=== PATIENT | male | born 1945 | race Caucasian/White ===

== ENCOUNTER 2019-05-30 17:13 | Inpatient (IN) | payer MEDICARE, BC ==
[~2019-05-30 17:13] MED LIST: Iopamidol 370 76% 100 ML VIAL ONE
[2019-05-30 18:02] LABS: Actual Bicarbonate (HCO3a) 15.2 mEq/L (22-28); Analyzer IN Cardio ER; Base Excess (BEa) -7.6 mEq/L (-2.0 to +3.0); Carboxyhemoglobin (COHb) 0.6 gm% (0.0-3.0); Hemoglobin (Hb) 7.5 g/dL (14.0-18.0); O2 Tension (PaO2) 111.2 mmHg (> 70.0); Potassium - ABG Lab 4.79 mmol/L (3.70-5.30); pH, Arterial 7.46 (7.35-7.45)
[2019-05-30 18:06] LABS: CO2 Tension 21.9 mmHg (35.0-45.0)
[2019-05-30] MEDS ORDERED: Fentanyl 100 MCG/2 ML VIAL ONE (18:06)
[2019-05-30] MEDS ORDERED: Piperacillin/Tazobactam 4.5 GM VIAL ONE (18:06)
[2019-05-30 18:07] LABS: Hemoglobin 7.5 g/dL (14.0-18.0); Mean Corpuscular HGB CONC 33.6 g/dL (32.0-36.0); Mean Corpuscular Hemoglobin 32.6 pg (27.0-31.0); Mean Corpuscular Volume 97.3 fL (78.0-98.0); Platelet Count 45 thou/uL (130-400); White Blood Cell (WBC) Count 4.8 thou/uL (4.8-10.8)
[2019-05-30 18:07] LABS: ALV-art Gradient 574.425 (0-20); Puncture Site RRA
[2019-05-30] MEDS ORDERED: Vancomycin HCl 1.25 GM in Sodium Chloride 0.9% 250 ML 250 ML IVPB ONE (18:15)
[2019-05-30 18:20] LABS: Anisocytosis MODERATE=16-30 cells (100X) (0-5/hpf); Band 17 % (5-11); Eosinophils 1 % (0-10); Lymphocytes 37 % (21-51); MDiff Complete? YES; Monocytes 12 % (0-10); Neutrophil 29 % (42-75); Ovalocytes SLIGHT = 2-5 cells (100X) (0-1/hpf); Platelet Morphology Comment Appears Decreased; Poikilocytosis SLIGHT = 6-15 cells (100X) (0-5/hpf); Polychromasia SLIGHT = 2-3 cells (100X) (0-2/hpf); Reactive Lymphocytes 4 % (0-10); Schistocytes SLIGHT = 2-5 cells (100X) (0-1/hpf); Spherocytes SLIGHT = 1-5 cells (100X) (None Seen); Toxic Granulation SLIGHT
--- NOTE | 2019-05-30 18:22 | ULT ---
ULTRASOUND DOPPLER DUPLEX VENOUS LEFT LOWER EXTREMITY: DATE: 05/30/2019 HISTORY: Left lower extremity pain and edema in 74-year-old male TECHNIQUE: Grayscale, color-flow, and spectral analysis, of major veins of left lower extremity. FINDINGS: There is demonstration of blood flow with normal compressibility, of the left common femoral, profund a femoral, greater saphenous, femoral, popliteal, and posterior tibial, veins. IMPRESSION: Negative. No deep venous thrombosis of left lower extremity.
[2019-05-30 18:24] LABS: ALT (SGPT) 17 U/L (8-55); AST (SGOT) 25 U/L (5-34); Albumin 2.9 g/dL (3.4-4.8); Alkaline Phosphatase 83 U/L (40-110); Anion Gap 19 mmol/L (10-20); BUN (Urea Nitrogen) 21 mg/dL (8.4-25.7); Bilirubin, Total 1.9 mg/dL (0.2-1.2); Calc. Creatinine Clearance 0 mL/min (70-130); Calcium 8.4 mg/dL (7.8-10.44); Carbon Dioxide 19 mmol/L (23-31); Chloride 105 mmol/L (98-107); Estimated GFR-MDRD 70; Globulin 4.2 g/dL (2.4-3.5); Glucose 77 mg/dL (83-110); Potassium 5.3 mmol/L (3.5-5.1); Protein, Total 7.1 g/dL (5.8-8.1); Sodium 138 mmol/L (136-145)
--- NOTE | 2019-05-30 18:35 | RAD ---
PORTABLE CHEST: Date: 05/30/19 HISTORY: Dyspnea. COMPARISON: August 2012 portable chest. FINDINGS: Diffuse alveolar infiltrate is seen throughout the right lung, more prominent in the periphery. Hazy alveolar infiltrate in the left lower lung. Heart size upper normal with postop sternotomy change. IMPRESSION: Diffuse alveolar infiltrates throughout the right lung and evidence of hazy alveolar infiltrate in th e left lung base. POS: AGW
[2019-05-30 18:45] LABS: CKMB 1.3 ng/mL (0-6.6)
[2019-05-30 19:00] LABS: Bilirubin Negative (Negative); Blood, Urine Negative (Negative); Clarity Clear (Clear); Glucose, Urine (Dipstick) Normal (Negative); Leukocyte Negative Leu/uL (Negative); Nitrite Negative (Negative); Protein, Urine (Dipstick) 20 mg/dL (Neg-Trace); Urobilinogen Greater than 12 mg/dL (Less than 2)
[2019-05-30] MEDS ORDERED: Atropine Sulfate 1 mg/10 ml Syringe ONE (19:20)
[2019-05-30] MEDS ORDERED: Rocuronium Bromide 50 MG/5 ML VIAL ONE ×2 (19:21→19:24)
[2019-05-30] MEDS ORDERED: Rocuronium Bromide 10 MG/ML (10ML VIAL) ONE ×2 (19:22→19:23)
--- NOTE | 2019-05-30 20:14 | RAD ---
RADIOGRAPH CHEST 1 VIEW: DATE: 05/30/2019 TIME: 7:51 PM HISTORY: 74-year-old male in respiratory failure, status post intubation. COMPARISON: 05/30/2019 5:51 PM FINDINGS: Dense alveolar infiltrate throughout most of the right lung has become more dense. Right lateral cost ophrenic angle is now excluded from [id number]. Blunting of left lateral costophrenic angle stable. Interstitial or alveolar densities throughout the left mid and lower lung zones, stable versu s slightly worse. New endotracheal tube at mid thoracic trachea. New esophagogastric tube with distal tip in distal esophagus. This is a supine image which would be insensitive for pneumothorax de tection. Left apex is clear. IMPRESSION: 1) status post intubation with endotracheal tube. 2) esophagogastric tube placement into the distal esophagus. 3) somewhat severe alveolar infiltrates throughout right lung. 4) left lower lobe infiltrate 5) small left pleural effusion
--- NOTE | 2019-05-30 20:35 | CT ---
CT ANGIOGRAM THORAX WITH CONTRAST: (CTA pulmonary angiogram) DATE: 05/30/2019 HISTORY: 74-year-old male with dyspnea. History of lung cancer. COMPARISON: Attenuation correction CT for PET scan of 03/04/2017 TECHNIQUE: IV injection of iodinated contrast. Scan acquisition timing attempted to coincide with iodinated contrast bolus reaching maximal density in pulmonary arteries. 3-D MIP reconstructions. FINDINGS: New finding of severe alveolar infiltrates throughout the right upper lobe, with lateral predominance . New finding of moderate sized consolidation of right lower lobe with air bronchogram. New finding of small right pleural effusion. New finding of small left pleural effusion. New finding of left lower lobe consolidations. New finding of multifocal mild to moderate scattered alveolar infiltrates at left lower lobe, includi ng the lingula and posterior segment, less extensive than on the right. Endotracheal tube distal tip at mid thoracic trachea. Esophagogastric tube distal tip at distal esophagus. No IV contrast within what appears to be an expanded medial basilar segment of left lower lobe pulmon eccile artery. Uncertain whether this represents the previously demonstrated left lower lobe lung cancer invading shagufta men this artery or whether this represents PE. All the rest of the pulmonary arteries are opacified with IV contrast. No thoracic aortic aneurysm or dissection. Nonspecific multiple mildly enlarged mediastinal and hilar lymph nodes bilaterally. Coronary artery calcification severe throughout LAD. Less severe at RCA. No cardiomegaly. IMPRESSION: 1) severe right upper lobe alveolar infiltrates, and multifocal smaller less extensive left upper lob e alveolar infiltrates. This has the appearance of bilateral upper lobe pneumonia. However, the patient reportedly has no leukocytosis and no fever. Other etiology for the infiltrates should then b e considered, such as pulmonary hemorrhage and noninfectious causes of pneumonitis (unless there is neutropenia which would explain the lack of fever and leukocytosis). 2) bilateral small pleural effusions. 3) bilateral lower lobe consolidations adjacent to the pleural effusions. These could represent passi ve atelectasis or bilateral lower lobe pneumonia. 4) nonopacification of medial basilar segment of left lower lobe pulmonary artery. Uncertain whether this represents lung cancer direct tumor invasion of this artery, or isolated pulmonary thromboembolism. The appearance is atypical for pulmonary thromboembolism. 5) esophagogastric tube distal tip is at distal esophagus, just superior to the esophagogastric junct ion..
[2019-05-30] MEDS ORDERED: Morphine 2 MG/ML SYRINGE SLOW IVP PRN ×2 (20:53→22:46)
[2019-05-30] MEDS ORDERED: Fentanyl BOLUS 250 ML IVPB PRN ×2 (20:53→22:46)
[2019-05-30] MEDS ORDERED: DISCONTINUE PREVIOUS NARCOTIC PAIN MEDICATIONS AND BENZODIAZEPINES FS SCH ×2 (20:53→22:46)
[2019-05-30] MEDS ORDERED: Propofol BOLUS 1,000 MG/100 ML VIAL IV PRN (20:53)
[2019-05-30] MEDS ORDERED: Lorazepam 2 MG/ML VIAL SLOW IVP PRN (20:53)
[2019-05-30] MEDS ORDERED: fentaNYL Citrate/PF 2,000 MCG in Sodium Chloride 0.9% 60 ML IV SCH (20:53)
[2019-05-30 20:54] LABS: Lactic Acid 6.4 mmol/L (0.5-2.2)
[2019-05-30 20:55] LABS: Actual Bicarbonate (HCO3a) 16.9 mEq/L (22-28); Analyzer IN Cardio ER; Base Excess (BEa) -9.7 mEq/L (-2.0 to +3.0); CO2 Tension 40.2 mmHg (35.0-45.0); Calcium, Ionized 1.08 mmol/L (1.12-1.30); Carboxyhemoglobin (COHb) 0.5 gm% (0.0-3.0); Hemoglobin (Hb) 7.1 g/dL (14.0-18.0); O2 Tension (PaO2) 96.1 mmHg (> 70.0); Potassium - ABG Lab 4.88 mmol/L (3.70-5.30)
[2019-05-30 20:56] LABS: Peep/CPAP 7.5 cmH2O; Puncture Site RRA; pH, Arterial 7.24 (7.35-7.45)
--- NOTE | 2019-05-30 20:59 | CT ---
CT ABDOMEN WITH CONTRAST CT PELVIS WITH CONTRAST: DATE: 05/30/2019 HISTORY: 74-year-old male with abdominal pain, generalized status post surgical removal of mass from abdomen. COMPARISON: Attenuation correction noncontrast CT for PET scan of 03/04/2017. TECHNIQUE: IV injection of iodinated contrast media: administered. Oral contrast media:Not administered FINDINGS: At midline in the subcutaneous fat anterior to the upper anterior abdominal wall at the level of stom ach, there is a 2 cm focus of subcutaneous emphysema. Perhaps this represents the site of surgical resection mentioned in the history. Recommend clinical correlation. Ill-defined wedge-shaped region of low attenuation at mid pole parenchyma of left kidney posterolater ally. Much smaller such lesion questioned in contralateral right renal midpole. Uncertain etiology. Perhaps acute or subacute renal infarctions. No splenomegaly. Limited evaluation of liver because of streak artifact because upper extremities wer e not elevated. No gross hepatic abnormality. No hydronephrosis. 3.5 x 3 cm fusiform infrarenal abdominal aortic aneurysm. Sullivan catheter within empty urinary bladder. No colonic diverticulitis. No small bowel dilation. No splenomegaly. Unremarkable pancreas. No adrenal mass. No ascites or pneumoperitoneum. Left pleural effusion and bilateral lower lobe consolidations. Right middle lobe an d right upper lobe alveolar infiltrates. Suture line involving bowel loop in right upper quadrant, apparently ileocolic anastomosis. This is new since previous CT. IMPRESSION: 1) wedge-shaped low attenuation lesions in the bilateral kidneys, one on each side, left greater than right. Etiology uncertain, but possibilities include acute or subacute renal infarctions and pyelonephritis. 2) Small focus of subcutaneous emphysema in the subcutaneous fat ventral to the upper midline abdomin al wall. Recommend correlation with recent surgical history. 3) status post bowel anastomosis involving ascending colon 4) fusiform infrarenal abdominal aortic aneurysm.
[2019-05-30 21:35] LABS: Troponin I 0.123 ng/mL (< 0.028)
[2019-05-30] MEDS ORDERED: Ventilator Sedation Protocol 1 EACH FS ONE (22:43)
[2019-05-30] MEDS ORDERED: Acetaminophen 650 MG Suppository PR PRN (22:43)
[2019-05-30] MEDS ORDERED: CCU Electrolyte Replacement 1 EACH FS ONE (22:43)
[2019-05-30] MEDS ORDERED: Ondansetron ODT 4 MG TAB PO PRN (22:43)
[2019-05-30] MEDS ORDERED: Ondansetron PF 4 MG/2 ML Vial IVP PRN (22:43)
[2019-05-30] MEDS ORDERED: Norepinephrine 8 MG/0.9% NS 250 ML IVPB SCH (22:45)
[2019-05-30] MEDS ORDERED: Potassium Phosphate 12 MMOL in Sodium Chloride 0.9% 250 ML 250 ML IV PRN (22:47)
[2019-05-30] MEDS ORDERED: CCU ELECTROLYTE REPLACEMENT PROTOCOL FS PRN (22:47)
[2019-05-30] MEDS ORDERED: Potassium Phosphate 15 MMOL in Sodium Chloride 0.9% 250 ML 250 ML IV PRN (22:47)
[2019-05-30] MEDS ORDERED: Potassium Phosphate 9 MMOL in Sodium Chloride 0.9% 100 ML IVPB PRN (22:47)
[2019-05-30] MEDS ORDERED: Potassium Chloride 40 MEQ in Premix Bag 1 BAG IVPB PRN (22:47)
[2019-05-30] MEDS ORDERED: PHOS-NAK 1 PKT PACK PO PRN ×2 (22:47)
[2019-05-30] MEDS ORDERED: Potassium Chloride 20 MEQ TAB PO PRN (22:47)
[2019-05-30] MEDS ORDERED: Magnesium Oxide 400 MG TAB PO PRN ×2 (22:47)
[2019-05-30] MEDS ORDERED: Magnesium 2 GM/50 ML 2 GM in Premix Bag 1 BAG IVPB PRN (22:47)
[2019-05-30] MEDS ORDERED: Potassium Chloride 40 MEQ in Sodium Chloride 0.9% 250 ML 250 ML IVPB PRN (22:47)
--- NOTE | 2019-05-30 22:58 | CT ---
CT BRAIN NONCONTRAST: DATE: 05/30/2019 HISTORY: 74-year-old male with altered mental status: Unresponsive and generalized weakness. FINDINGS: There is no evidence of acute intra-axial or extra-axial hemorrhage. There is no midline shift or any other mass effect. There is no extra-axial fluid collection. There is no evidence of obstructive hydrocephalus. Calvarium is intact. Moderate to severe mucosal thickening of bilateral maxillary sinu ses surrounded by osseous mural thickening indicating a long-standing chronic process. IMPRESSION: 1. No acute intracranial findings. 2. Chronic bilateral maxillary sinusitis.
[2019-05-30] MEDS: Propofol 1,000 MG/100 ML VIAL IV PRN (23:37)
[2019-05-31] MEDS: Piperacillin/Tazobactam 4.5 GM in Sodium Chloride 0.9% 100 ML IVPB SCH ×5 (00:43→23:07)
[2019-05-31] MEDS: Sodium Chloride 0.9% 1,000 ML IV SCH ×5 (00:44→22:29)
--- NOTE | 2019-05-31 00:44 | HP ---
PRIMARY CARE PROVIDER: Previously seeing Dr. Nelson Kaplan, question of Dr. Thang Zuñiga currently. CHIEF COMPLAINT: Shortness of breath and general weakness. HISTORY OF PRESENT ILLNESS: This is a 74-year-old male who presents to [facility] Emergency Department in transfer by EMS personnel after the patient's girlfriend called EMS due to profound weakness and unable to get the patient off the floor. The history is obtained after discussions with the patient's granddaughter, girlfriend as well as emergency room attending and nursing personnel. The patient currently on mechanical ventilation and unable to provide any history. The patient was apparently admitted to [facility] in the last week for workup regarding anemia. The patient was noted anemic, undergoing evaluation and eventual colonoscopy showing a colon mass. The patient underwent subsequent colon resection with the mass being a malignancy. The patient was hospitalized for several days and the patient reports the patient was complaining of persistent productive cough. The patient was discharged home on oxygen supplementation and was using this continuously. Remote history of tobacco use, but the family reports none currently. The patient also with significant history of lung cancer, previously treated approximately 4 years prior to this evaluation. Family had noted the patient with increasing general weakness, needing assistance for short distance ambulation. The patient had denied any specific fever, abdominal pain, diarrhea, exposure history, however, was admitted to [facility] within the last 1 to 1-1/2 weeks. In the emergency room, the patient was noted with hypotension with initial blood pressure of 90/50. The patient received aggressive IV fluid hydration with improvement in systolic blood pressure to 144/80. The patient was noted with persistent dyspnea and respiratory failure. Initially placed on oxygen supplementation by nasal cannula, transitioning to BiPAP, noninvasive mechanical ventilation. However, the patient was failing this mechanism and underwent intubation and placed on mechanical ventilation. Metabolic workup in the emergency room revealed a lactic acidosis of 9.2 and evidence of sepsis with chest imaging showing infiltrate bilaterally in the upper lobes. The patient received IV vancomycin, Zosyn, and Levaquin in addition to IV fluid resuscitation per sepsis protocol. The patient was placed on a Rambo Hugger due to hypothermia and received 1 unit of packed red blood cells with initial hemoglobin of 7.5. PAST MEDICAL HISTORY: 1. [id number] hypoxic respiratory failure with chronic oxygen supplementation. 2. Lung carcinoma status post chemotherapy. 3. Question of atrial fibrillation. 4. Generalized weakness. 5. Normocytic anemia, multifactorial including chronic disease state. 6. Colon carcinoma status post resection. 7. Remote tobacco abuse. PAST SURGICAL HISTORY: 1. Status post femoral-popliteal bypass, 2005. 2. Status post colon resection due to colon carcinoma. 3. Status post abdominal aortic aneurysm repair, 2005. CURRENT MEDICATIONS: Unobtainable. The patient's family will present an accurate list in the next 24 hours. ALLERGIES: TO TETANUS TOXOID. FAMILY HISTORY: Positive for hypertension. SOCIAL HISTORY: The patient resides in the [facility]. Accompanied by his granddaughters and girlfriend in the emergency room. Remote tobacco use, none currently. No alcohol or illicit drug use. Ambulates with a rolling walker. REVIEW OF SYSTEMS: Unobtainable due to the patient's altered mental status and respiratory failure on mechanical ventilation. PHYSICAL EXAMINATION: VITAL SIGNS: On admission, blood pressure 107/63, pulse is 69, respiratory rate 32, temperature 97.8 degrees Fahrenheit, O2 saturation 90% on 4 L/minute by nasal cannula. GENERAL APPEARANCE: This is a 74-year-old male, ill appearing, cyanotic, dusky, and unresponsive on current mechanical ventilation. HEENT: Pupils are sluggish and minimally reactive to light and accommodation. Nares patent. OP is clear. ET tube and OG tube in place. NECK: Supple. No cervical adenopathy. No thyromegaly. No carotid bruits. No JVD noted. CHEST: Coarse breath sounds bilaterally with prolonged expiratory phase. CARDIOVASCULAR EXAM: S1, S2 with tachycardia. No murmur, rub, or gallop appreciated. ABDOMEN: Obese, soft, nondistended. Bowel sounds are positive in all 4 quadrants. No palpable mass. No rebound or guarding appreciated. EXTREMITIES: Warm and dry with poor turgor. Prolonged capillary refill greater than 3 seconds. Pulses are palpable distally at the dorsalis pedis, posterior tibial, and popliteal arteries bilaterally. Capillary refill less than 2 seconds. NEUROLOGIC: Somnolent and unresponsive on current mechanical ventilation. : A Sullivan catheter in place with dark gricel urine. PERTINENT LABORATORY AND X-RAY FINDINGS: Sodium 138, potassium 5.3, chloride 105, CO2 of 19, BUN 21, creatinine 1.04, estimated GFR of 70. Lactic acid level ranged between 6.4 to 9.2, total bilirubin 1.9, AST 25, ALT of 17, alkaline phosphatase 83. Troponin I ranged between 0.123 to 0.141. CBC showed a white blood cell count of 4.8, hemoglobin 7.5, hematocrit 22.3, platelet count 45 with 29% neutrophils and 17% bands. ABG dated 05/30/2019, showed a pH 7.24, pCO2 of 40.2, pO2 of 96.1, bicarb 16.9, O2 saturation 94% on 70% FiO2. Urinalysis dated 05/30/2019, positive for ketones. Left lower extremity venous Doppler study dated 05/30/2019, negative for DVT. CT of the abdomen and pelvis dated 05/30/2019, showed low-attenuation wedge-shaped lesion in the bilateral kidneys, left greater than right. Etiology uncertain. Status post bowel anastomosis of the ascending colon. Fusiform infrarenal abdominal aortic aneurysm. CT angiogram of the chest dated 05/30/2019 showed severe right upper lobe alveolar infiltrates and multifocal smaller left upper lobe infiltrates. Bilateral lower lobe consolidation with associated pleural effusions. CT of the brain without contrast dated 05/30/2019, showed chronic changes bilaterally without acute process. EKG dated 05/30/2019, by my interpretation shows sinus mechanism with heart rates in the 60s. Normal R-wave progression noted in the precordial leads. Normal axis. Premature atrial complexes noted. ASSESSMENT AND PLAN: 1. Severe sepsis with septic shock secondary to pneumonia. The patient will be admitted to the critical care unit. Status post intubation and placed on mechanical ventilation in the emergency room. Initiation of sepsis protocol in the emergency room with IV fluid resuscitation. Suspect multifactorial process including developing pneumonia. Continue serial lactic acid assessment. 2. Acute hypoxic hypercapnic respiratory failure. Suspect secondary to healthcare-associated bacterial pneumonia. Continue IV Levaquin 750 mg q.24 hours with additional vancomycin 1.5 g IV q.12 hours, and Zosyn 4.5 g IV q.6 hours. Blood and urine cultures are pending. Continue aggressive pulmonary supportive management. Consult Pulmonology Service in the a.m. 3. Acute toxic metabolic encephalopathy. Suspect multifactorial process including severe sepsis with septic shock. Minimize sedation exposure. Family at the bedside for reorientation as needed. 4. Symptomatic anemia, suspected. Transfuse 1 unit of packed red blood cells in the emergency room. Continue serial H and H monitoring and transfuse as clinically indicated. Check stool guaiac. Limit anticoagulation and NSAIDs. 5. Non-ST elevation myocardial infarction. Suspect secondary to demand ischemic state in the context of #1. Continue general supportive management. Serial troponin monitoring. Likely no intervention given the patient's severe sepsis and tenuous clinical presentation. 6. Colon carcinoma status post resection. Continue supportive management. Serial H and H monitoring. Attempt to obtain pathology results from [facility] in [place], [place]. 7. Prophylaxis. SCDs while in bed. Pepcid 20 mg IV b.i.d. Consider Palliative Care consult. 8. Code status is full. Surrogate medical decision maker is the patient's son. Job ID: [id number]
[2019-05-31 01:01] LABS: Troponin I 0.127 ng/mL (< 0.028)
[2019-05-31 02:18] LABS: Lactic Acid 2.2 mmol/L (0.5-2.2)
[2019-05-31] MEDS: Lorazepam 2 MG/ML VIAL SLOW IVP PRN ×3 (02:47→15:22)
[2019-05-31 04:22] LABS: Band 4 % (5-11); Eosinophils 1 % (0-10); Hemoglobin 7.6 g/dL (14.0-18.0); Hypochromia SLIGHT = 6-15 cells (100X) (0-5/hpf); Lymphocytes 43 % (21-51); MDiff Complete? YES; Mean Corpuscular Hemoglobin 32.7 pg (27.0-31.0); Mean Platelet Volume 10.7 fL (7.4-10.4); Monocytes 12 % (0-10); Neutrophil 40 % (42-75); Nucleated RBC 1 % (0); Platelet Count 32 thou/uL (130-400); Platelet Morphology Comment Appears Decreased; Red Blood Cell (RBC) Count 2.32 mill/uL (4.70-6.10); White Blood Cell (WBC) Count 2.4 thou/uL (4.8-10.8)
[2019-05-31 04:44] LABS: ALT (SGPT) 559 U/L (8-55); AST (SGOT) 1077 U/L (5-34); Albumin 2.5 g/dL (3.4-4.8); Alkaline Phosphatase 76 U/L (40-110); Anion Gap 14 mmol/L (10-20); BUN (Urea Nitrogen) 25 mg/dL (8.4-25.7); Bilirubin, Total 2.5 mg/dL (0.2-1.2); Calc. Creatinine Clearance 87 mL/min (70-130); Calcium 7.5 mg/dL (7.8-10.44); Carbon Dioxide 20 mmol/L (23-31); Chloride 109 mmol/L (98-107); Estimated GFR-MDRD 81; Globulin 3.6 g/dL (2.4-3.5); Glucose 98 mg/dL (83-110); Potassium 4.9 mmol/L (3.5-5.1); Protein, Total 6.1 g/dL (5.8-8.1); Sodium 138 mmol/L (136-145); Troponin I 0.151 ng/mL (< 0.028)
[2019-05-31 06:45] LABS: Actual Bicarbonate (HCO3a) 16.9 mEq/L (22-28); Base Excess (BEa) -6.2 mEq/L (-2.0 to +3.0); Carboxyhemoglobin (COHb) 1.7 gm% (0.0-3.0); Hemoglobin (Hb) 8.1 g/dL (14.0-18.0); Potassium - ABG Lab 4.43 mmol/L (3.70-5.30); pH, Arterial 7.45 (7.35-7.45)
[2019-05-31 06:58] LABS: CO2 Tension 25.2 mmHg (35.0-45.0)
[2019-05-31 06:59] LABS: Peep/CPAP 7.5 cmH2O; Puncture Site RRAD
[2019-05-31] MEDS: Famotidine/PF 20 mg/2ml Vial SLOW IVP SCH ×2 (07:30→22:27)
--- NOTE | 2019-05-31 07:49 | RAD ---
CHEST 1 VIEW: INDICATION: Respiratory failure. COMPARISON: Prior exam of 05/30/2019. IMPRESSION: ET tube, gastric catheter are again demonstrated. The gastric catheter has been advanced below the l eft hemidiaphragm beyond the field of view. Bilateral airspace opacities persist. No pneumothorax i s evident. Right costophrenic angle is excluded. POS: BH
[2019-05-31] MEDS: Vancomycin HCl 1.25 GM in Sodium Chloride 0.9% 250 ML 250 ML IVPB SCH ×2 (08:24→22:27)
[2019-05-31] MEDS: Propofol 1,000 MG/100 ML VIAL IV PRN ×2 (08:43→15:21)
[2019-05-31] MEDS ORDERED: Vancomycin HCl 1.5 GM in Sodium Chloride 0.9% 250 ML 250 ML IVPB SCH (09:00)
--- NOTE | 2019-05-31 09:19 | CON ---
DATE OF CONSULTATION: 05/31/2019 CONSULTING PHYSICIAN: Dr. Elie Carrasquillo. REASON FOR CONSULTATION: Critical care management following encompassed 70 minutes of critical care time. HISTORY OF PRESENT ILLNESS: The patient is a 74-year-old who presented to the hospital via EMS with profound weakness. He was intubated secondary to respiratory failure and placed on mechanical ventilation. He initially was tried on BiPAP that failed. Most of the history I have obtained is from reading Dr. Carrasquillo's history and physical and speaking with the patient's son. This patient was at [facility] 10 days ago and had a colon tumor removed that was bleeding causing significant anemia. About four days in that hospitalization, the patient was ready to go home. He developed severe hypoxemia. He eventually required oxygen therapy at home prior to hospital discharge. At home, he has been doing very poorly with increased weakness and shortness of breath. PAST MEDICAL HISTORY: 1. Acute on chronic respiratory failure, requiring chronic oxygen. 2. Left lower lobe lung cancer treated with radiation and chemotherapy by Dr. Myles at [facility]. 3. Paroxysmal atrial fibrillation. 4. Weakness. 5. Anemia. 6. Colon cancer. PAST SURGICAL HISTORY: 1. Coronary bypass grafting surgery. 2. Femoral-popliteal bypass. 3. Colon resection. 4. Abdominal aortic aneurysm repair. ALLERGIES: TETANUS TOXOID. FAMILY MEDICAL HISTORY: Remarkable for hypertension. SOCIAL HISTORY: Remote history of tobacco abuse. Currently does not smoke. Does not use illicit drugs. Ambulates with a rolling walker. Medications prior to admission not available for review at this time. We will request discharge medications from [facility]. REVIEW OF SYSTEMS: Not obtainable as the patient is currently on mechanical ventilation. PHYSICAL EXAMINATION: VITAL SIGNS: Heart rate 55, blood pressure 103/53, O2 saturation 97%, respiratory rate 18, temperature 97.5. This patient is on mechanical ventilation, receiving light sedation with propofol. He will awaken and move about the bed. HEENT: Pupils reactive. Sclerae anicteric. Oropharynx, ET tube in place. NECK: No adenopathy or JVD. LUNGS: Coarse rhonchi bilaterally with copious sputum production. CARDIOVASCULAR: S1, S2. Slightly bradycardic. No murmur. ABDOMEN: Midline surgical scar from previous colon resection appears to be healing well. Abdomen is not distended. Bowel sounds active. EXTREMITIES: No clubbing, cyanosis, or edema. He does have some blood tinged urine in his Sullivan catheter. LABORATORY DATA: White blood cell count 2.4, hemoglobin 7.6, hematocrit 22.3, and platelet count 32. PH 7.45, pCO2 of 25, PO2of 119 on SIMV rate 14, tidal volume 550, PEEP 7.5, pressure support 10, FiO2 of 50%. Sodium 138, potassium 4.9, chloride 109, CO2 of 20, BUN 25, creatinine 0.9, glucose 81. AST 1077, ALT 559. Troponin 0.015. Albumin 2.5. His chest x-ray shows bilateral infiltrates. CT scan shows bilateral infiltrative changes. There is a mass present in the left lower lobe which is small. He has small bilateral pleural effusions. ASSESSMENT: 1. Acute respiratory failure requiring mechanical ventilation. 2. Acute hypoxic respiratory failure. 3. Nosocomial/hospital-acquired pneumonia. 4. Status post colon cancer resection. 5. History of lung cancer. 6. History of underlying chronic obstructive pulmonary disease. 7. Anemia. 8. Thrombocytopenia. PLAN: The patient will be transfused platelets for the severe thrombocytopenia. He will be kept on mechanical ventilation. I agree with the current antibiotic coverage of Levaquin, Zosyn, and vancomycin. His laboratory data will be trended. He has transaminitis which is likely due to shock liver. Job ID: [id number]
--- NOTE | 2019-05-31 10:42 | PDOC.PALCO ---
Palliative Care Consult - Consult Details Requesting Physician: Dr Carrasquillo Reason for Consult: goals of care, advance directives assistance, family support Family Members Present: Patient son (He is an only child) - Pertinent HPI Chronic health history. Treated for lung cancer 3 years ago as per son. A few weeks ago patient had an increase in weakness, falls, and found to be anemic. Further work up revealed a mass in his colon. Underwent a subsequent colon resection with removal of malignant mass, son reports lymph node involvement. Discharged from [facility] 05/27 to home with O2 secondary to respiratory compromise. They were awaiting results from the pathology prior to following up with oncology. After discharge patient continued with weakness, fell and was unable to get up. His girlfriend called 911 and patient was transferred to [facility]. Found to be hypotensive, hypothermic, and with respiratory compromise eventually requiring mechanical ventilation to maintain airway. Admitted to CCU for Acute on chronic respiratory failure, Colon carcinoma, weakness, anemia. - Pertinent PMH History of lung failure, anemia, Colon carcinoma s/p resection, hypertension, s/ p pop fem bypass, s/p abdominal aortic aneyrysm repair - Social History Smoking Status: Former smoker Smoking: quit greater than 1 year Alcohol Use: none Drug Use History: none Living Situation: independent (Has a girlfriend who lives two doors down.) - Medications MAR Reviewed: Yes - Allergies Allergies/Adverse Reactions: Allergies Allergy/AdvReac Type Severity Reaction Status Date / Time amiodarone Allergy Verified 05/30/19 23:36 tetanus toxoid, adsorbed Allergy Verified 05/30/19 23:36 - Subjective mechanical ventilation with sedation. Unable to perform a ROS secondary to nonverbal state - Objective Vital Signs: Vital Signs - Most Recent Temp Pulse Resp BP Pulse Ox 99.1 F 56 L 20 102/51 L 98 05/31/19 10:05 05/31/19 10:28 05/31/19 10:27 05/31/19 10:05 05/31/19 10:27 Palliative Performance Scale: 20 - Physical Exam Constitutional: encephalitic, ill appearing Deviation from normal: mechanical ventilation HEENT: moist MMs Deviation from normal: mechanical ventilation, adventicious lung sounds bilaterally Cardiovascular: no significant murmur, RRR Gastrointestinal: hypoactive bowel sounds, incontinent Genitourinary: carmona catheter Musculoskeletal: no cyanosis, pulses present Deviation from normal: sedated Skin: cap refill <2 seconds, no rash Deviation from normal: healing surgical scar to abdomin Deviation from normal: mechanical, sedated - Problem List (1) Palliative care encounter Code(s): Z51.5 - ENCOUNTER FOR PALLIATIVE CARE Current Visit: Yes Status: Acute (2) Respiratory failure requiring intubation Code(s): J96.90 - RESPIRATORY FAILURE, UNSP, UNSP W HYPOXIA OR HYPERCAPNIA Current Visit: Yes Status: Acute (3) Colon carcinoma Code(s): C18.9 - MALIGNANT NEOPLASM OF COLON, UNSPECIFIED Current Visit: Yes Status: Acute (4) History of lung cancer Code(s): Z85.118 - PERSONAL HISTORY OF MALIGNANT NEOPLASM OF BRONCHUS AND LUNG Current Visit: Yes Status: Acute (5) Acute metabolic encephalopathy Code(s): G93.41 - METABOLIC ENCEPHALOPATHY Current Visit: Yes Status: Acute - Plan/Recommendations Plan: Visited with son. History as well as supportive therapeutic listening. Patient has one son, and two granddaughters and is known as "Papa". He has a girlfriend that resides two doors down who is also not in optimal health. Son report patient has continued to work and enjoys being outdoors. Son is patient decision maker. *Request for pathology from [facility] has been made in relation to colon resection. Consideration to Oncoclogy referral by son *Discussed goals of care and monitoring patient through weekend. *revisit resuscitation status again when patient becomes more alert or condition changes illiciting further conversation *Alla Negro senior paralegal also present for conversation. [75] minutes spent on this encounter with >50% of the time in counseling and coordination of care. Thank you for this very appropriate consult.
--- NOTE | 2019-05-31 14:35 | PDOC.HOSPP ---
- Subjective Encounter Date: 05/31/19 Encounter Time: 08:31 Subjective: 74 y/o male with lung cancer s/p chemo, recent diagnosis of colon cancer s/p resection and re anastomosis, chronic respiratory failure on home oxygen brought in by EMS after a fall at home and was unable to get uu. He is said to have worsening SOB and generalized weakness. Patient was hypotensive hence was treated with IVF resuscitation and subsequently developed worsening SOB that failed BIPAP and was subsequently intubated. Still intubated and sedated. - Objective Vital Signs & Weight: Vital Signs (12 hours) Temp Pulse Pulse Pulse Pulse Resp BP 05/31/19 14:23 64 19 05/31/19 12:00 98.4 F 25 H 05/31/19 11:15 98.4 F 58 L 19 05/31/19 11:05 56 L 58 L 97/53 L 05/31/19 10:28 56 L 05/31/19 10:27 56 L 20 05/31/19 10:05 99.1 F 58 L 21 H 05/31/19 10:00 22 H 05/31/19 09:50 99.1 F 55 L 20 05/31/19 08:00 23 H 05/31/19 07:00 97.5 F L 57 L 05/31/19 06:00 18 05/31/19 04:00 97.6 F 18 BP BP Pulse Ox Pulse Ox Pulse Ox 05/31/19 14:23 99 05/31/19 12:00 05/31/19 11:15 97/53 L 98 05/31/19 11:05 103/73 99 98 05/31/19 10:28 05/31/19 10:27 98 05/31/19 10:05 102/51 L 98 05/31/19 10:00 05/31/19 09:50 103/53 L 99 05/31/19 08:00 05/31/19 07:00 05/31/19 06:00 05/31/19 04:00 Weight Admit Weight 189 lb Weight 189 lb 9.561 oz Most Recent Monitor Data Heart Rate from ECG 61 NIBP 98/52 NIBP BP-Mean 67 Respiration from ECG 30 SpO2 98 I&O: 05/30/19 05/31/19 06/01/19 06:59 06:59 06:59 Intake Total 840.8 250 Output Total 350 465 Balance 490.8 -215 Result Diagrams: 05/31/19 03:31 05/31/19 03:31 Hospitalist ROS - Medication Medications: Active Medications Generic Name Dose Route Start Last Admin Trade Name Freq PRN Reason Stop Dose Admin Albuterol/Ipratropium 3 ml 05/31/19 10:30 05/31/19 14:23 Duoneb NEB 3 ml [id number] RADHA Administration Famotidine 20 mg 05/31/19 09:00 05/31/19 07:30 Pepcid SLOW IVP 20 mg Q12HR RADHA Administration Fentanyl Citrate 2,000 mcg/ 100 mls @ 0 mls/hr 05/30/19 20:53 05/31/19 10:43 Sodium Chloride IV 06/29/19 20:53 100 mls INF RADHA Administration Protocol Per Protocol Sodium Chloride 1,000 mls @ 0 mls/hr 05/30/19 22:45 05/31/19 14:01 Normal Saline 0.9% IV 1,000 mls .Q0M RADHA Administration As Directed Piperacillin Sod/Tazobactam 100 mls @ 200 mls/hr 05/30/19 23:59 05/31/19 12: 30 Sod 4.5 gm/ Sodium Chloride IVPB 100 mls Q6HR RADHA Administration Vancomycin HCl 1.25 gm/ Sodium 250 mls @ 166.667 mls/hr 05/31/19 08:00 08:24 Chloride IVPB 250 mls 0800,2000 RADHA Administration Sodium Chloride 1,000 mls @ 125 mls/hr 05/31/19 00:45 05/31/19 00:44 Normal Saline 0.9% IV 1,000 mls .Q8H RADHA Administration Lorazepam 2 mg 05/30/19 22:46 05/31/19 08:41 Ativan SLOW IVP 06/29/19 22:46 2 mg Q1H PRN Administration Breakthrough agitation Morphine Sulfate 2 mg 05/30/19 22:46 05/31/19 07:29 Morphine SLOW IVP 06/29/19 22:46 2 mg Q1H PRN Administration BREAKTHROUGH PAIN/Agitation Propofol 1,000 mg 05/30/19 20:53 05/31/19 08:43 Diprivan IV 06/29/19 20:53 1,000 mg INF PRN Administration TO ACHIEVE GOAL RASS Protocol Sodium Chloride 10 ml 05/31/19 09:00 05/31/19 08:25 Flush - Normal Saline IVF 10 ml Q12HR RADHA Administration - Exam General - other findings: sedated ENT - other findings: ET and NG tubes in place Heart: RRR Respiratory - other findings: fair air entry with ventilator transmitted sound Gastrointestinal: soft, non-distended Gastrointestinal - other findings: Sullivan catheter in place Extremities: 1+ LE edema Neurological - other findings: sedated Hosp A/P (1) Septic shock Code(s): A41.9 - SEPSIS, UNSPECIFIED ORGANISM; R65.21 - SEVERE SEPSIS WITH SEPTIC SHOCK Status: Acute (2) Acute on chronic respiratory failure Code(s): J96.20 - ACUTE AND CHR RESP FAILURE, UNSP W HYPOXIA OR HYPERCAPNIA Status: Acute (3) Multifocal pneumonia Code(s): J18.9 - PNEUMONIA, UNSPECIFIED ORGANISM Status: Acute (4) Ischemia and infarction of kidney Code(s): N28.0 - ISCHEMIA AND INFARCTION OF KIDNEY Status: Acute (5) Severe anemia Code(s): D64.9 - ANEMIA, UNSPECIFIED Status: Acute (6) Thrombocythemia Status: Acute (7) Hepatosplenomegaly Code(s): R16.2 - HEPATOMEGALY WITH SPLENOMEGALY, NOT ELSEWHERE CLASSIFIED Status: Acute (8) Colon carcinoma Code(s): C18.9 - MALIGNANT NEOPLASM OF COLON, UNSPECIFIED Status: Acute (9) History of lung cancer Code(s): Z85.118 - PERSONAL HISTORY OF MALIGNANT NEOPLASM OF BRONCHUS AND LUNG Status: Acute (10) Shock liver Code(s): K72.00 - ACUTE AND SUBACUTE HEPATIC FAILURE WITHOUT COMA Status: Acute (11) Pulmonary embolism Code(s): I26.99 - OTHER PULMONARY EMBOLISM WITHOUT ACUTE COR PULMONALE Status : Suspected - Plan Continue broad spectrum antibiotics. Vent management as per painter apprentice. No anticoagulation due to recent surgery and severe anemia and thrombocytopenia cardioembolization is a concern given bilateral wedge shaped kidney lesions. Will get Echo looking for cardiac thrombus. Continue other supportive care.
[2019-05-31] MEDS: Propofol BOLUS 1,000 MG/100 ML VIAL IV PRN ×2 (20:50→22:35)
[2019-06-01] MEDS: Propofol BOLUS 1,000 MG/100 ML VIAL IV PRN (02:00)
[2019-06-01] MEDS: Propofol 1,000 MG/100 ML VIAL IV PRN ×4 (02:00→18:17)
[2019-06-01] MEDS: Sodium Chloride 0.9% 1,000 ML IV SCH ×3 (02:20→23:04)
[2019-06-01] MEDS: Lorazepam 2 MG/ML VIAL SLOW IVP PRN ×5 (02:21→15:52)
[2019-06-01] MEDS: Piperacillin/Tazobactam 4.5 GM in Sodium Chloride 0.9% 100 ML IVPB SCH ×3 (05:57→17:38)
[2019-06-01 06:40] LABS: Band 2 % (5-11); Hemoglobin 6.8 g/dL (14.0-18.0); Lymphocytes 48 % (21-51); MDiff Complete? YES; Mean Corpuscular HGB CONC 33.9 g/dL (32.0-36.0); Mean Corpuscular Hemoglobin 32.4 pg (27.0-31.0); Mean Corpuscular Volume 95.7 fL (78.0-98.0); Metamyelocyte 2 % (0-0); Monocytes 8 % (0-10); Neutrophil 40 % (42-75); Platelet Count 31 thou/uL (130-400); Platelet Morphology Comment Appears Decreased; RBC Distribution Width 20.1 % (11.5-14.5); Red Blood Cell (RBC) Count 2.11 mill/uL (4.70-6.10); White Blood Cell (WBC) Count 2.4 thou/uL (4.8-10.8)
[2019-06-01 06:46] LABS: ALT (SGPT) 465 U/L (8-55); AST (SGOT) 729 U/L (5-34); Albumin 2.4 g/dL (3.4-4.8); Alkaline Phosphatase 87 U/L (40-110); Anion Gap 12 mmol/L (10-20); BUN (Urea Nitrogen) 20 mg/dL (8.4-25.7); Bilirubin, Total 1.7 mg/dL (0.2-1.2); Calc. Creatinine Clearance 88 mL/min (70-130); Calcium 7.5 mg/dL (7.8-10.44); Carbon Dioxide 21 mmol/L (23-31); Chloride 110 mmol/L (98-107); Estimated GFR-MDRD 82; Globulin 3.6 g/dL (2.4-3.5); Glucose 90 mg/dL (83-110); Sodium 139 mmol/L (136-145)
[2019-06-01 06:49] LABS: Actual Bicarbonate (HCO3a) 16.7 mEq/L (22-28); Base Excess (BEa) -6.5 mEq/L (-2.0 to +3.0); Calcium, Ionized 1.12 mmol/L (1.12-1.30); O2 Tension (PaO2) 69.6 mmHg (> 70.0); Potassium - ABG Lab 3.86 mmol/L (3.70-5.30); pH, Arterial 7.45 (7.35-7.45)
[2019-06-01 07:13] LABS: CO2 Tension 24.6 mmHg (35.0-45.0); Puncture Site RRAD
[2019-06-01 07:14] LABS: Peep/CPAP 7.5 cmH2O
[2019-06-01 07:46] LABS: Vancomycin, Trough 13.5 ug/mL
--- NOTE | 2019-06-01 08:03 | RAD ---
CHEST 1 VIEW: INDICATION: Pneumonia. COMPARISON: Prior dated 05/22/2019. IMPRESSION: ET tube, gastric catheter are again demonstrated. Bilateral airspace opacity is similar-appearing. Post CABG change and mild cardiomegaly is stable appearing. Small left pleural effusion persists. N o pneumothorax is evident. POS: BH
[2019-06-01] MEDS: Famotidine/PF 20 mg/2ml Vial SLOW IVP SCH ×2 (08:44→20:01)
[2019-06-01] MEDS: Vancomycin HCl 1.25 GM in Sodium Chloride 0.9% 250 ML 250 ML IVPB SCH ×2 (08:44→20:01)
--- NOTE | 2019-06-01 09:03 | PRG ---
DATE OF SERVICE: 06/01/2019 TIME SPENT: Thirty five minutes of critical care time. SUBJECTIVE: The patient remains intubated on mechanical ventilation. He will withdraw to pain, but does not open his eyes or follow commands. OBJECTIVE: VITAL SIGNS: His temperature is 99.8, pulse 76, blood pressure 89/49, O2 saturation 97%. He is currently receiving propofol and fentanyl for sedation. A 24-hour intake 3647, output 1445. HEENT: Remarkable for bitemporal wasting. NECK: No adenopathy or JVD. LUNGS: Coarse breath sounds bilaterally. CARDIOVASCULAR: S1, S2. Regular. ABDOMEN: Soft. Surgical scar appears to be healing well. EXTREMITIES: No clubbing, cyanosis, or edema. LABORATORY DATA: Sodium 139, potassium 4.0, chloride 110, CO2 of 21, BUN 20, creatinine 0.9, glucose 82, AST 729, ALT 465. PH 7.45, pCO2 of 24, PO2 of 69 on SIMV rate 12, tidal volume 550, PEEP 7.5, pressure support 10, FiO2 of 40%. White blood cell count 2.4, hemoglobin 6.8, hematocrit 20.2, and platelet count 31. Chest x-ray demonstrates improved bilateral infiltrates compared to yesterday. An echocardiogram demonstrated severe mitral regurgitation. EF of 50% to 55%. Moderately enlarged right ventricle cavity and mild aortic regurgitation. ASSESSMENT: 1. Acute respiratory failure requiring mechanical ventilation. 2. Bilateral pneumonia versus congestive heart failure from valvular heart disease. 3. Nosocomial/hospital-acquired pneumonia for previous hospitalization. 4. Status post colon cancer resection. 5. Transaminitis likely due to heart failure/hypotension. 6. History of lung cancer. 7. History of chronic obstructive pulmonary disease. 8. Anemia. 9. Thrombocytopenia. PLAN: 1. I will give him some blood today to increase his hemoglobin. 2. He is not weanable at this time based on his poor mental status. 3. He will continue antibiotics and I will make adjustments based on culture results. 4. I have adjusted his mechanical ventilation settings. Job ID: [id number]
[2019-06-01] MEDS ORDERED: EPINEPHrine 1 MG/ML AMP ONE (09:20)
[2019-06-01] MEDS ORDERED: FLU VACC TS2019-20(65YR UP)/PF 180 MCG/0.5 ML SYRINGE IM ONE (11:15)
--- NOTE | 2019-06-01 12:54 | PDOC.HOSPP ---
- Subjective Encounter Date: 06/01/19 Encounter Time: 10:53 Subjective: 74 y/o male with lung cancer s/p chemo, recent diagnosis of colon cancer s/p resection and re anastomosis, chronic respiratory failure on home oxygen, who is said to have worsening generalized weakness and SOB was brought in by EMS after a fall at home. Patient was hypotensive hence was treated with IVF resuscitation and subsequently developed worsening SOB that failed BIPAP and was subsequently intubated. Still intubated, sedated and on pressors. - Objective Vital Signs & Weight: Vital Signs (12 hours) Temp Pulse Pulse Resp BP BP Pulse Ox 06/01/19 11:08 70 06/01/19 11:07 72 22 H 96 06/01/19 10:00 26 H 06/01/19 09:50 99.1 F 108 H 94 H 99/67 06/01/19 08:00 32 H 06/01/19 07:19 76 06/01/19 07:12 83 37 H 97 06/01/19 07:00 99.2 F 06/01/19 06:00 27 H 06/01/19 04:00 99.8 F H 21 H 06/01/19 02:24 71 96/57 L 06/01/19 02:00 29 H Weight Admit Weight 189 lb Weight 195 lb 12.328 oz Most Recent Monitor Data Heart Rate from ECG 70 NIBP 109/61 NIBP BP-Mean 77 Respiration from ECG 22 SpO2 96 I&O: 05/31/19 06/01/19 06/02/19 06:59 06:59 06:59 Intake Total 840.8 3647 470 Output Total 350 1445 475 Balance 490.8 2202 -5 Result Diagrams: 06/01/19 06:12 06/01/19 06:12 Hospitalist ROS - Medication Medications: Active Medications Generic Name Dose Route Start Last Admin Trade Name Freq PRN Reason Stop Dose Admin Albuterol/Ipratropium 3 ml 05/31/19 10:30 06/01/19 11:07 Duoneb NEB 3 ml [id number] RADHA Administration Famotidine 20 mg 05/31/19 09:00 06/01/19 08:44 Pepcid SLOW IVP 20 mg Q12HR RADHA Administration Levofloxacin 750 mg/ Device 150 mls @ 100 mls/hr 05/31/19 18:00 05/31/19 18: 16 IVPB 150 mls Q24HR RADHA Administration Sodium Chloride 1,000 mls @ 0 mls/hr 05/30/19 22:45 05/31/19 14:01 Normal Saline 0.9% IV 1,000 mls .Q0M RADHA Administration As Directed Piperacillin Sod/Tazobactam 100 mls @ 200 mls/hr 05/30/19 23:59 06/01/19 12: 41 Sod 4.5 gm/ Sodium Chloride IVPB 100 mls Q6HR RADHA Administration Vancomycin HCl 1.25 gm/ Sodium 250 mls @ 166.667 mls/hr 05/31/19 08:00 08:44 Chloride IVPB 250 mls 0800,2000 RADHA Administration Sodium Chloride 1,000 mls @ 125 mls/hr 05/31/19 00:45 06/01/19 08:42 Normal Saline 0.9% IV 1,000 mls .Q8H RADHA Administration Lorazepam 2 mg 05/30/19 22:46 06/01/19 09:50 Ativan SLOW IVP 06/29/19 22:46 2 mg Q1H PRN Administration Breakthrough agitation Morphine Sulfate 2 mg 05/30/19 22:46 05/31/19 07:29 Morphine SLOW IVP 06/29/19 22:46 2 mg Q1H PRN Administration BREAKTHROUGH PAIN/Agitation Propofol 1,000 mg 05/30/19 20:53 06/01/19 12:41 Diprivan IV 06/29/19 20:53 1,000 mg INF PRN Administration TO ACHIEVE GOAL RASS Protocol Propofol 20 mg 05/30/19 22:46 06/01/19 02:00 Diprivan Bolus IV 06/29/19 22:46 20 mg Q5MIN PRN Administration BREAKTHROUGH AGITATION Sodium Chloride 10 ml 05/31/19 09:00 06/01/19 08:44 Flush - Normal Saline IVF Not Given Q12HR RADHA - Exam General - other findings: sedated Eye: anicteric sclera ENT: normocephalic atraumatic ENT - other findings: ET and OG tubes are in place Heart: RRR Respiratory: tachypneic Respiratory - other findings: ventilator transmitted breathsound noted Gastrointestinal: soft, non-distended, normal bowel sounds Extremities: no cyanosis, no edema Extremities - other findings: scattered petechaie and ecchymosis both forearms noted Neurological - other findings: sedated Hosp A/P (1) Septic shock Code(s): A41.9 - SEPSIS, UNSPECIFIED ORGANISM; R65.21 - SEVERE SEPSIS WITH SEPTIC SHOCK Status: Acute (2) Acute on chronic respiratory failure Code(s): J96.20 - ACUTE AND CHR RESP FAILURE, UNSP W HYPOXIA OR HYPERCAPNIA Status: Acute (3) Multifocal pneumonia Code(s): J18.9 - PNEUMONIA, UNSPECIFIED ORGANISM Status: Acute (4) Ischemia and infarction of kidney Code(s): N28.0 - ISCHEMIA AND INFARCTION OF KIDNEY Status: Acute (5) Severe anemia Code(s): D64.9 - ANEMIA, UNSPECIFIED Status: Acute (6) Thrombocythemia Status: Acute (7) Hepatosplenomegaly Code(s): R16.2 - HEPATOMEGALY WITH SPLENOMEGALY, NOT ELSEWHERE CLASSIFIED Status: Acute (8) Colon carcinoma Code(s): C18.9 - MALIGNANT NEOPLASM OF COLON, UNSPECIFIED Status: Acute (9) History of lung cancer Code(s): Z85.118 - PERSONAL HISTORY OF MALIGNANT NEOPLASM OF BRONCHUS AND LUNG Status: Acute (10) Shock liver Code(s): K72.00 - ACUTE AND SUBACUTE HEPATIC FAILURE WITHOUT COMA Status: Acute (11) Pulmonary embolism Code(s): I26.99 - OTHER PULMONARY EMBOLISM WITHOUT ACUTE COR PULMONALE Status : Suspected (12) Severe tricuspid regurgitation Code(s): I07.1 - RHEUMATIC TRICUSPID INSUFFICIENCY Status: Acute (13) Severe mitral regurgitation Code(s): I34.0 - NONRHEUMATIC MITRAL (VALVE) INSUFFICIENCY Status: Acute - Plan Continue broad spectrum antibiotics. Vent management as per nuclear weapons mechanical specialist. No anticoagulation due to recent surgery and severe anemia and thrombocytopenia cardioembolization is a concern given bilateral wedge shaped kidney lesions. TTE was negative for cardiac thrombus. Will consider MARTINA when more stable. Monitor telemetry for atrial fib Continue other supportive care.
--- NOTE | 2019-06-01 15:22 | CON ---
DATE OF CONSULTATION: 06/01/2019 REASON FOR CONSULTATION: Bradycardia. HISTORY OF PRESENT ILLNESS: Mr. Cobb is a 74-year-old white gentleman, who was admitted for what appeared to be a pneumonia. He was admitted on the after being in the [facility] for a few days. He was short of breath and has generalized weakness. He was diagnosed with severe sepsis and septic shock secondary to what was thought to be a pneumonia and acute hypoxic respiratory insufficiency. He was admitted, intubated, and has been on supportive care ever since with antibiotics and on the ventilator. He was suctioned earlier today and soon after the suction, he became very bradycardic and had a sinus pause. Since that happened, every time he gets moved, he gets bradycardic briefly and then he comes out of it, heart rate in the 70s otherwise. He is sedated, intubated, and cannot provide any history. PAST MEDICAL HISTORY: 1. Acute on chronic hypoxic respiratory failure with chronic O2 supplementation. 2. Lung carcinoma, status post chemotherapy. 3. History of atrial fibrillation in the past. 4. Generalized weakness. 5. Normocytic anemia. 6. Colon carcinoma, status post recent resection. 7. Remote tobacco use. 8. Peripheral vascular disease. SURGICAL HISTORY: 1. Femoral-popliteal bypass in 2005. 2. Colon resection. 3. Abdominal aortic aneurysm repair in 2005. OUTPATIENT MEDICATIONS: Unobtainable as the patient is sedated and intubated. None in our system. ALLERGIES: TETANUS TOXOID AND AMIODARONE APPARENTLY. FAMILY HISTORY: Hypertension per chart review. SOCIAL HISTORY: History of remote tobacco use. No alcohol or drug use. REVIEW OF SYSTEMS: Unobtainable as the patient remains sedated and intubated. PHYSICAL EXAMINATION: VITAL SIGNS: Temperature 99.0, respiratory rate 32, saturating 92% on 40% FiO2, heart rate in the mid 70s. The episode that he had on telemetry, heart rate went down to the 20s briefly and one time he had a long sinus pause about 6 seconds. GENERAL: Sedated and intubated. LUNGS: Have reduced breath sounds. CARDIOVASCULAR: S1 and S2. Grade 2/3 systolic right upper sternal border. ABDOMEN: Soft. Positive bowel sounds. EXTREMITIES: No edema. SKIN: Warm and dry. LABORATORY DATA: Laboratory work was reviewed. White count of 2.4; hemoglobin of 6.8, dropped from 7.6; hematocrit of 20; platelet count of 31. ABG was reviewed. Chemistries were reviewed. LFTs are elevated with total bilirubin of 1.7, AST of 700, ALT of 400. Troponin is in the indeterminate range. UA was unremarkable. Telemetry was reviewed. Echocardiogram was reviewed. This was done yesterday, showed an EF of 50% to 55%, enlarged right ventricle, severe mitral regurgitation and mild aortic regurgitation, severe TR with elevated pressures. ASSESSMENT: 1. Sinus bradycardia and sinus pauses. 2. History of atrial fibrillation. 3. Chronic obstructive pulmonary disease. 4. Pulmonary hypertension, likely related to chronic obstructive pulmonary disease. 5. Severe mitral regurgitation. 6. Hospital-acquired pneumonia. 7. Recent colon resection for colon cancer. 8. History of lung cancer. PLAN: 1. Most likely, episodes of bradycardia are related to vasovagal reaction from suctioning. At this time,we will continue to monitor. He is not a candidate at the moment for a permanent pacemaker. However, if he continues to be bradycardic, he may need an urgent or emergent temporary pacer, not at this time. 2. Continue to monitor for now. We will plan on stopping the fentanyl drip as fentanyl may cause bradycardia in critically ill patients. Thank you for letting us to participate in the care of your patient. We will follow. Job ID: [id number]
[2019-06-02] MEDS: Piperacillin/Tazobactam 4.5 GM in Sodium Chloride 0.9% 100 ML IVPB SCH ×4 (00:47→17:41)
[2019-06-02 04:50] LABS: Hemoglobin 8.4 g/dL (14.0-18.0); Mean Corpuscular HGB CONC 35.3 g/dL (32.0-36.0); Mean Corpuscular Hemoglobin 32.5 pg (27.0-31.0); Mean Corpuscular Volume 92.2 fL (78.0-98.0); Mean Platelet Volume 11.4 fL (7.4-10.4); Platelet Count 14 thou/uL (130-400); Red Blood Cell (RBC) Count 2.59 mill/uL (4.70-6.10); White Blood Cell (WBC) Count 2.8 thou/uL (4.8-10.8)
[2019-06-02 05:09] LABS: ALT (SGPT) 362 U/L (8-55); AST (SGOT) 344 U/L (5-34); Albumin 2.3 g/dL (3.4-4.8); Alkaline Phosphatase 93 U/L (40-110); Anion Gap 9 mmol/L (10-20); BUN (Urea Nitrogen) 23 mg/dL (8.4-25.7); Bilirubin, Total 2.7 mg/dL (0.2-1.2); Calc. Creatinine Clearance 87 mL/min (70-130); Calcium 7.3 mg/dL (7.8-10.44); Carbon Dioxide 22 mmol/L (23-31); Chloride 111 mmol/L (98-107); Estimated GFR-MDRD 78; Globulin 3.8 g/dL (2.4-3.5); Glucose 139 mg/dL (83-110); Potassium 3.6 mmol/L (3.5-5.1); Protein, Total 6.1 g/dL (5.8-8.1); Sodium 138 mmol/L (136-145)
[2019-06-02 05:14] VITALS: BMI 28.8
[2019-06-02 05:25] LABS: Band 14 % (5-11); Elliptocytes SLIGHT = 2-5 cells (100X) (0-1/hpf); Hypochromia SLIGHT = 6-15 cells (100X) (0-5/hpf); Lymphocytes 39 % (21-51); MDiff Complete? YES; Metamyelocyte 3 % (0-0); Monocytes 9 % (0-10); Neutrophil 35 % (42-75); Nucleated RBC 1 % (0); Platelet Morphology Comment Appears Decreased
[2019-06-02] MEDS: Propofol 1,000 MG/100 ML VIAL IV PRN ×2 (06:41→11:35)
[2019-06-02] MEDS: Sodium Chloride 0.9% 1,000 ML IV SCH (06:44)
[2019-06-02 06:56] LABS: Actual Bicarbonate (HCO3a) 15.9 mEq/L (22-28); Base Excess (BEa) -7.7 mEq/L (-2.0 to +3.0); Calcium, Ionized 1.12 mmol/L (1.12-1.30); Hemoglobin (Hb) 7.9 g/dL (14.0-18.0); O2 Tension (PaO2) 66.6 mmHg (> 70.0); Potassium - ABG Lab 3.62 mmol/L (3.70-5.30); pH, Arterial 7.41 (7.35-7.45)
[2019-06-02 07:08] LABS: CO2 Tension 25.7 mmHg (35.0-45.0)
[2019-06-02 07:09] LABS: ALV-art Gradient 329.075 (0-20); Puncture Site RRAD
[2019-06-02] MEDS: Vancomycin HCl 1.25 GM in Sodium Chloride 0.9% 250 ML 250 ML IVPB SCH (08:13)
--- NOTE | 2019-06-02 08:13 | RAD ---
CHEST 1 VIEW: INDICATION: Pneumonia. COMPARISON: Prior exam dated 06/01/2019. IMPRESSION: Bilateral pneumonia is stable. Cardiomegaly is stable. ET tube and gastric catheter are stable. Ve rtebroplasty change and midline sternotomy are stable. No pneumothorax is evident. POS: BH
[2019-06-02] MEDS: Famotidine/PF 20 mg/2ml Vial SLOW IVP SCH ×2 (08:14→20:08)
[2019-06-02] MEDS: Sodium Chloride 0.45% 1,000 ML IV SCH ×3 (09:54→21:03)
[2019-06-02] MEDS: Metoclopramide HCl 10 MG/2 ML VIAL IVP SCH ×3 (09:54→20:09)
--- NOTE | 2019-06-02 10:02 | PRG ---
DATE OF SERVICE: 06/02/2019 TIME SPENT: Thirty five minutes critical time. SUBJECTIVE: The patient remains intubated on mechanical ventilation. He is sedated on propofol. OBJECTIVE: VITAL SIGNS: Temperature 98.2, pulse 82, blood pressure 97/57, respiratory rate in the high 20s, low 30s. HEENT: He has a disheveled appearance. NECK: No adenopathy or JVD. LUNGS: Crackles bilaterally. CARDIAC: S1 and S2, regular. ABDOMEN: Soft and nontender. Surgical scar appears to be healing well. EXTREMITIES: No clubbing, cyanosis, or edema. LABORATORY DATA: Sodium 138, potassium 3.6, chloride 111, CO2 of 22, BUN 23, creatinine 0.9, glucose 139, AST 344, ALT 362, albumin 2.3. White blood cell count 2.8, hematocrit 23.9, and platelet count 14. PH 7.41, pCO2 of 25, and pO2 of 66 on SIMV rate 12, tidal volume 500, PEEP 5, pressure support 10, FiO2 60%. ASSESSMENT: 1. Acute respiratory failure, requiring mechanical ventilation. 2. Bilateral pneumonia on x-ray. 3. Episode of bradycardia. 4. Status post colon cancer resection. 5. Improved transaminitis, history of lung cancer. 6. History of chronic obstructive pulmonary disease. 7. Anemia. 8. Severe thrombocytopenia. PLAN: Based on his neuromuscular weakness, he is not weanable at this time. He is continuing antibiotic treatment for his pneumonia. His bradycardia has improved with discontinuation of the fentanyl. Cultures to this point have shown no growth, therefore, I will stop the vancomycin. His prognosis is extremely poor for functional recovery. Job ID: [id number]
--- NOTE | 2019-06-02 11:32 | PDOC.CPN ---
- Subjective Date: 06/02/19 Time: 11:30 Interval history: No new issues. Bradycardia improved. - Review of Systems ROS unobtainable: due to endotracheal tube - Objective Allergies/Adverse Reactions: Allergies Allergy/AdvReac Type Severity Reaction Status Date / Time amiodarone Allergy Verified 05/30/19 23:36 tetanus toxoid, adsorbed Allergy Verified 05/30/19 23:36 Visit Medications: Current Medications Acetaminophen (Tylenol) 650 mg UT Q4H PRN PRN Reason: Fever > 101 Albuterol/Ipratropium (Duoneb) 3 ml NEB [id number] [facility] Last Admin: 06/02/19 10:19 Dose: 3 ml Famotidine (Pepcid) 20 mg SLOW IVP Q12HR [facility] Last Admin: 06/02/19 08:14 Dose: Not Given Levofloxacin 750 mg/ Device 150 mls @ 100 mls/hr IVPB Q24HR [facility] Last Admin: 06/01/19 16:40 Dose: 150 mls Sodium Chloride (Normal Saline 0.9%) 1,000 mls @ 0 mls/hr IV .Q0M [facility] Last Admin: 05/31/19 14:01 Dose: 1,000 mls Piperacillin Sod/Tazobactam (Sod 4.5 gm/ Sodium Chloride) 100 mls @ 200 mls/hr IVPB Q6HR [facility] Last Admin: 06/02/19 05:37 Dose: 100 mls Potassium Chloride 40 meq/ (Sodium Chloride) 270 mls @ 135 mls/hr IVPB ASDIR PRN PRN Reason: FOR SERUM K+ 2.5 - 3.5 Potassium Chloride 40 meq/ (Device) 100 mls @ 50 mls/hr IVPB ASDIR PRN PRN Reason: FOR SERUM K+ 2.5 - 3.5 Magnesium Sulfate 1 gm/ Sodium (Chloride) 102 mls @ 102 mls/hr IV PRN PRN PRN Reason: MAG LEVEL 1.4 - 2.0 Magnesium Sulfate 2 gm/ Device 50 mls @ 50 mls/hr IVPB ASDIR PRN PRN Reason: MAGNESIUM < 1.4 Potassium Phosphate 9 mmol/ (Sodium Chloride) 103 mls @ 25.75 mls/hr IVPB ASDIR PRN PRN Reason: Phosphate 1.0-1.8 Potassium Phosphate 12 mmol/ (Sodium Chloride) 254 mls @ 63.5 mls/hr IV ASDIR PRN PRN Reason: Serum phosphate 0.5-0.9 Potassium Phosphate 15 mmol/ (Sodium Chloride) 255 mls @ 63.75 mls/hr IV ASDIR PRN PRN Reason: Serum Phos < 0.5 Sodium Chloride (1/2 Normal Saline) 1,000 mls @ 75 mls/hr IV .[id number] [facility] Last Admin: 06/02/19 09:54 Dose: Not Given Lorazepam (Ativan) 2 mg SLOW IVP Q1H PRN PRN Reason: Breakthrough agitation Stop: 06/29/19 22:46 Last Admin: 06/01/19 15:52 Dose: 2 mg Magnesium Oxide (Magnesium Oxide) 400 mg PO BIDPRN PRN PRN Reason: FOR SERUM MAG 1.4 - 2.0 Magnesium Oxide (Magnesium Oxide) 800 mg PO PRN PRN PRN Reason: FOR SERUM MAG < 1.4 Metoclopramide HCl (Reglan) 10 mg IVP Q6H [facility] Last Admin: 06/02/19 09:54 Dose: 10 mg Miscellaneous Medication (Phos-Nak) 1 pkt PO TIDPRN PRN PRN Reason: FOR PHOS LEVEL 1.0 - 1.8 Miscellaneous Medication (Phos-Nak) 2 pkt PO TIDPRN PRN PRN Reason: FOR PHOS LEVEL 0.5 - 1.0 Miscellaneous Medication (Pharmacy To Dose) 1 each IVPB PRN PRN PRN Reason: Pharmacy to dose Morphine Sulfate (Morphine) 2 mg SLOW IVP Q1H PRN PRN Reason: BREAKTHROUGH PAIN/Agitation Stop: 06/29/19 22:46 Last Admin: 05/31/19 07:29 Dose: 2 mg Discontinue Previous Narcotic Pain Medications And Benzodiazepines 1 each FS .ONE [facility] Stop: 06/29/19 22:46 Ccu Electrolyte (Replacement Protocol) 0 each FS PRN PRN PRN Reason: FOR ELECTROLYTE REPLACEMENT Ondansetron HCl (Zofran Odt) 4 mg PO Q6H PRN PRN Reason: Nausea/Vomiting Ondansetron HCl (Zofran) 4 mg IVP Q6H PRN PRN Reason: Nausea/Vomiting Potassium Chloride (K-Dur) 40 meq PO ASDIR PRN PRN Reason: FOR SERUM K+ 2.5 - 3.5 Potassium Chloride (Klor-Con) 40 meq PER TUBE ASDIR PRN PRN Reason: FOR SERUM K+ 2.5-3.5 Propofol (Diprivan) 1,000 mg IV INF PRN; Protocol PRN Reason: TO ACHIEVE GOAL RASS Stop: 06/29/19 20:53 Last Admin: 06/02/19 06:41 Dose: 1,000 mg Propofol (Diprivan Bolus) 20 mg IV Q5MIN PRN PRN Reason: BREAKTHROUGH AGITATION Stop: 06/29/19 22:46 Last Admin: 06/01/19 02:00 Dose: 20 mg Sodium Chloride (Flush - Normal Saline) 10 ml IVF Q12HR RADHA Last Admin: 06/02/19 08:14 Dose: 10 ml Sodium Chloride (Flush - Normal Saline) 10 ml IVF PRN PRN PRN Reason: Saline Flush Vital Signs & Weight: Vital Signs Temp Pulse Resp Pulse Ox 06/02/19 10:20 83 06/02/19 10:19 83 32 H 92 L 06/02/19 10:00 32 H 06/02/19 08:00 32 H 97 06/02/19 07:10 80 06/02/19 07:07 81 31 H 95 06/02/19 07:00 98.5 F 06/02/19 06:00 31 H 06/02/19 04:00 98.2 F 32 H 06/02/19 03:13 80 06/02/19 02:00 31 H 06/02/19 00:00 99.2 F 32 H Admit Weight 189 lb Weight 201 lb 4.513 oz - Physical Exam General: other (Sedated, intubated.) HEENT: normocephaly Neck: supple neck, midline trachea Cardiac: regular rate and rhythm Lungs: decreased breath sounds Neuro: no lateralizing findings Abdomen: active bowel sounds, soft, non-tender Extremities: no edema Skin: clear Musculoskeletal: no fluid collection - Labs Result Diagrams: 06/02/19 04:19 06/02/19 04:19 Troponin/CKMB CK-MB (CK-2) 1.3 ng/mL (0-6.6) 05/30/19 17:46 Troponin I 0.151 ng/mL (< 0.028) H 05/31/19 03:31 - Telemetry Sinus rhythms and dysrhythmias: sinus rhythm - Assessment/Plan Assessment/Plan: 1. Sinus bradycardia, improved. 2. Hx of Afib 3. COPD 4. Pulmonary HTN 5. Severe MR 6. Pneumonia 7. Recent colon resection due to Colon Ca. 8. Hx of lung Ca PLAN: - May have been fentanyl drip versus vagal episodes form suctioning. These episodes have not recurred since yesterday. - Continue to stay off Fentanyl.
[2019-06-02] MEDS ORDERED: Albumin 25% 25 GM/100 ML BOT IVPB SCH ×2 (12:15→15:28)
--- NOTE | 2019-06-02 13:52 | PDOC.HOSPP ---
- Subjective Encounter Date: 06/02/19 Encounter Time: 11:49 Subjective: 74 y/o male with lung cancer s/p chemo, recent diagnosis of colon cancer s/p resection and re anastomosis, chronic respiratory failure on home oxygen, who is said to have worsening generalized weakness and SOB was brought in by EMS after a fall at home. Patient was hypotensive hence was treated with IVF resuscitation and subsequently developed worsening SOB that failed BIPAP and was subsequently intubated. Still intubated and sedated. Off pressors. BP and urine output dropped with decrease of IVF rate. Had bradycardia yesterday after suction and with movement. Improved with discontinuation of fentanyl. - Objective Vital Signs & Weight: Vital Signs (12 hours) Temp Pulse Resp Pulse Ox 06/02/19 12:00 98.0 F 30 H 06/02/19 10:20 83 06/02/19 10:19 83 32 H 92 L 06/02/19 10:00 32 H 06/02/19 08:00 32 H 97 06/02/19 07:10 80 06/02/19 07:07 81 31 H 95 06/02/19 07:00 98.5 F 06/02/19 06:00 31 H 06/02/19 04:00 98.2 F 32 H 06/02/19 03:13 80 06/02/19 02:00 31 H Weight Admit Weight 189 lb Weight 201 lb 4.513 oz Most Recent Monitor Data Heart Rate from ECG 82 NIBP 95/58 NIBP BP-Mean 70 Respiration from ECG 30 SpO2 92 I&O: 06/01/19 06/02/19 06/03/19 06:59 06:59 06:59 Intake Total 3647 5995.5 250 Output Total 1445 1195 175 Balance 2202 4800.5 75 Result Diagrams: 06/02/19 04:19 06/02/19 04:19 Hospitalist ROS - Medication Medications: Active Medications Generic Name Dose Route Start Last Admin Trade Name Freq PRN Reason Stop Dose Admin Albumin Human 25 gm 06/02/19 12:15 06/02/19 12:30 Albumin 25% IVPB 06/03/19 14:15 25 gm NOW RADHA Administration Albuterol/Ipratropium 3 ml 05/31/19 10:30 06/02/19 10:19 Duoneb NEB 3 ml [id number] RADHA Administration Famotidine 20 mg 11/29/19 09:00 06/02/19 08:14 Pepcid SLOW IVP Not Given Q12HR RADHA Levofloxacin 750 mg/ Device 150 mls @ 100 mls/hr 05/31/19 18:00 06/01/19 16: 40 IVPB 150 mls Q24HR RADHA Administration Sodium Chloride 1,000 mls @ 0 mls/hr 05/30/19 22:45 05/31/19 14:01 Normal Saline 0.9% IV 1,000 mls .Q0M RADHA Administration As Directed Piperacillin Sod/Tazobactam 100 mls @ 200 mls/hr 05/30/19 23:59 06/02/19 11: 35 Sod 4.5 gm/ Sodium Chloride IVPB 100 mls Q6HR RADHA Administration Sodium Chloride 1,000 mls @ 75 mls/hr 06/02/19 09:30 06/02/19 09:54 1/2 Normal Saline IV Not Given .[id number] RADHA Lorazepam 2 mg 05/30/19 22:46 06/01/19 15:52 Ativan SLOW IVP 06/29/19 22:46 2 mg Q1H PRN Administration Breakthrough agitation Metoclopramide HCl 10 mg 06/02/19 10:00 06/02/19 09:54 Reglan IVP 10 mg Q6H RADHA Administration Morphine Sulfate 2 mg 05/30/19 22:46 05/31/19 07:29 Morphine SLOW IVP 06/29/19 22:46 2 mg Q1H PRN Administration BREAKTHROUGH PAIN/Agitation Propofol 1,000 mg 05/30/19 20:53 06/02/19 11:35 Diprivan IV 06/29/19 20:53 1,000 mg INF PRN Administration TO ACHIEVE GOAL RASS Protocol Propofol 20 mg 05/30/19 22:46 06/01/19 02:00 Diprivan Bolus IV 06/29/19 22:46 20 mg Q5MIN PRN Administration BREAKTHROUGH AGITATION Sodium Chloride 10 ml 05/31/19 09:00 06/02/19 08:14 Flush - Normal Saline IVF 10 ml Q12HR RADHA Administration - Exam General - other findings: sedated ENT: normocephalic atraumatic ENT - other findings: ET and OG tubes in place. Heart: RRR Respiratory: rhonchi, tachypneic Respiratory - other findings: fair air entry bilaterally Gastrointestinal: soft, non-distended, normal bowel sounds Extremities - other findings: mild bilateral upper limb edema. trace leg edema Neurological - other findings: sedated Hosp A/P (1) Septic shock Code(s): A41.9 - SEPSIS, UNSPECIFIED ORGANISM; R65.21 - SEVERE SEPSIS WITH SEPTIC SHOCK Status: Acute (2) Acute on chronic respiratory failure Code(s): J96.20 - ACUTE AND CHR RESP FAILURE, UNSP W HYPOXIA OR HYPERCAPNIA Status: Acute (3) Multifocal pneumonia Code(s): J18.9 - PNEUMONIA, UNSPECIFIED ORGANISM Status: Acute (4) Ischemia and infarction of kidney Code(s): N28.0 - ISCHEMIA AND INFARCTION OF KIDNEY Status: Acute (5) Severe anemia Code(s): D64.9 - ANEMIA, UNSPECIFIED Status: Acute (6) Thrombocythemia Status: Acute (7) Hepatosplenomegaly Code(s): R16.2 - HEPATOMEGALY WITH SPLENOMEGALY, NOT ELSEWHERE CLASSIFIED Status: Acute (8) Colon carcinoma Code(s): C18.9 - MALIGNANT NEOPLASM OF COLON, UNSPECIFIED Status: Acute (9) History of lung cancer Code(s): Z85.118 - PERSONAL HISTORY OF MALIGNANT NEOPLASM OF BRONCHUS AND LUNG Status: Acute (10) Shock liver Code(s): K72.00 - ACUTE AND SUBACUTE HEPATIC FAILURE WITHOUT COMA Status: Acute (11) Pulmonary embolism Code(s): I26.99 - OTHER PULMONARY EMBOLISM WITHOUT ACUTE COR PULMONALE Status : Suspected (12) Severe tricuspid regurgitation Code(s): I07.1 - RHEUMATIC TRICUSPID INSUFFICIENCY Status: Acute (13) Severe mitral regurgitation Code(s): I34.0 - NONRHEUMATIC MITRAL (VALVE) INSUFFICIENCY Status: Acute (14) Bradycardia Code(s): R00.1 - BRADYCARDIA, UNSPECIFIED Status: Acute (15) Pancytopenia Code(s): D61.818 - OTHER PANCYTOPENIA Status: Acute - Plan Give albumin bolus to see if bp and urine output improves. Continue broad spectrum antibiotics. Vent management as per hot baller. cardioembolization is a concern given bilateral wedge shaped kidney lesions. TTE was negative for cardiac thrombus. Will consider MARTINA when more stable. Monitor telemetry for atrial fib Continue other supportive care.
[2019-06-02 23:49] VITALS: BP 97/49
[2019-06-03] MEDS ORDERED: DOPamine 400 MG/D5W 250 ML 250 ML ONE (00:07)
[2019-06-03] MEDS ORDERED: DOPamine 400 MG/D5W 250 ML 250 ML IVPB SCH (00:15)
[2019-06-03 00:34] LABS: Actual Bicarbonate (HCO3a) 11.9 mEq/L (22-28); Calcium, Ionized 1.12 mmol/L (1.12-1.30); Carboxyhemoglobin (COHb) 0.8 gm% (0.0-3.0); Hemoglobin (Hb) 9.2 g/dL (14.0-18.0); Potassium - ABG Lab 4.98 mmol/L (3.70-5.30)
[2019-06-03] MEDS ORDERED: Sodium Bicarb 50 MEQ/50 ML VIAL ONE ×2 (00:43→07:46)
[2019-06-03] MEDS ORDERED: Sodium Bicarb 50 MEQ/50 ML VIAL IVP SCH ×2 (00:45→08:00)
[2019-06-03] MEDS ORDERED: Sodium Bicarbonate 140 MEQ in Dextrose 5% in Water 1,000 ML IV SCH (00:45)
[2019-06-03] MEDS ORDERED: Norepinephrine 8 MG/0.9% NS 250 ML ONE (00:45)
[2019-06-03] MEDS ORDERED: Norepinephrine 8 MG in Dextrose 5% in Water 242 ML IVPB PRN (00:46)
[2019-06-03 00:48] LABS: Mean Corpuscular HGB CONC 32.8 g/dL (32.0-36.0); Mean Corpuscular Hemoglobin 31.7 pg (27.0-31.0); Mean Corpuscular Volume 96.8 fL (78.0-98.0); Mean Platelet Volume 15.4 fL (7.4-10.4); Platelet Count 11 thou/uL (130-400); RBC Distribution Width 19.5 % (11.5-14.5); Red Blood Cell (RBC) Count 2.82 mill/uL (4.70-6.10); White Blood Cell (WBC) Count 7.2 thou/uL (4.8-10.8)
[2019-06-03 00:52] LABS: O2 Tension (PaO2) 59.6 mmHg (> 70.0); pH, Arterial 7.14 (7.35-7.45)
[2019-06-03 00:53] LABS: Puncture Site L RADIAL
[2019-06-03 01:04] LABS: Band 3 % (5-11); Lymphocytes 43 % (21-51); MDiff Complete? YES; Monocytes 14 % (0-10); Neutrophil 40 % (42-75); Platelet Morphology Comment Appears Decreased
[2019-06-03 01:08] LABS: ALT (SGPT) 351 U/L (8-55); AST (SGOT) 357 U/L (5-34); Albumin 2.8 g/dL (3.4-4.8); Alkaline Phosphatase 102 U/L (40-110); Anion Gap 19 mmol/L (10-20); BUN (Urea Nitrogen) 28 mg/dL (8.4-25.7); Bilirubin, Total 3.4 mg/dL (0.2-1.2); Calc. Creatinine Clearance 75 mL/min (70-130); Calcium 7.5 mg/dL (7.8-10.44); Carbon Dioxide 12 mmol/L (23-31); Chloride 114 mmol/L (98-107); Estimated GFR-MDRD 63; Globulin 3.5 g/dL (2.4-3.5); Glucose 123 mg/dL (83-110); Magnesium 2.2 mg/dL (1.6-2.6); Phosphorus 3.4 mg/dL (2.3-4.7); Potassium 4.8 mmol/L (3.5-5.1); Protein, Total 6.3 g/dL (5.8-8.1); Sodium 140 mmol/L (136-145)
[2019-06-03] MEDS: Piperacillin/Tazobactam 4.5 GM in Sodium Chloride 0.9% 100 ML IVPB SCH ×2 (01:29→05:11)
[2019-06-03 02:47] LABS: Hemoglobin 8.7 g/dL (14.0-18.0); Mean Corpuscular HGB CONC 33.1 g/dL (32.0-36.0); Mean Corpuscular Hemoglobin 31.9 pg (27.0-31.0); Mean Corpuscular Volume 96.4 fL (78.0-98.0); Mean Platelet Volume 13.9 fL (7.4-10.4); Platelet Count 9 thou/uL (130-400); RBC Distribution Width 19.5 % (11.5-14.5); Red Blood Cell (RBC) Count 2.73 mill/uL (4.70-6.10); White Blood Cell (WBC) Count 6.9 thou/uL (4.8-10.8)
[2019-06-03 03:01] LABS: Band 4 % (5-11); Eosinophils 2 % (0-10); Lymphocytes 24 % (21-51); MDiff Complete? YES; Monocytes 22 % (0-10); Myelocyte 1 % (0-0); Neutrophil 47 % (42-75); Nucleated RBC 1 % (0); Platelet Morphology Comment Appears Decreased
[2019-06-03 03:13] LABS: ALT (SGPT) 423 U/L (8-55); AST (SGOT) 549 U/L (5-34); Albumin 2.7 g/dL (3.4-4.8); Alkaline Phosphatase 108 U/L (40-110); Anion Gap 21 mmol/L (10-20); BUN (Urea Nitrogen) 30 mg/dL (8.4-25.7); Bilirubin, Total 3.9 mg/dL (0.2-1.2); Calc. Creatinine Clearance 66 mL/min (70-130); Calcium 7.6 mg/dL (7.8-10.44); Carbon Dioxide 15 mmol/L (23-31); Chloride 112 mmol/L (98-107); Estimated GFR-MDRD 53; Globulin 3.4 g/dL (2.4-3.5); Glucose 106 mg/dL (83-110); Potassium 4.7 mmol/L (3.5-5.1); Protein, Total 6.1 g/dL (5.8-8.1); Sodium 143 mmol/L (136-145)
[2019-06-03 04:09] VITALS: TEMP 98.7
[2019-06-03] MEDS: Metoclopramide HCl 10 MG/2 ML VIAL IVP SCH ×2 (05:11→10:49)
[2019-06-03 05:45] LABS: Actual Bicarbonate (HCO3a) 14.9 mEq/L (22-28); Analyzer IN Cardio OR; Base Excess (BEa) -13.2 mEq/L (-2.0 to +3.0); CO2 Tension 44.4 mmHg (35.0-45.0); Calcium, Ionized 1.06 mmol/L (1.12-1.30); Carboxyhemoglobin (COHb) 1.2 gm% (0.0-3.0); Potassium - ABG Lab 4.79 mmol/L (3.70-5.30)
[2019-06-03 05:48] LABS: O2 Tension (PaO2) 56.9 mmHg (> 70.0); Puncture Site L RADIAL; pH, Arterial 7.14 (7.35-7.45)
[2019-06-03] MEDS ORDERED: Norepinephrine 8 MG/0.9% NS 250 ML IVPB SCH (06:05)
[2019-06-03] MEDS ORDERED: Sodium Bicarbonate 50 MEQ in Sodium Chloride 0.45% 1,000 ML IV SCH (07:45)
--- NOTE | 2019-06-03 07:45 | RAD ---
Chest one view HISTORY: Pneumonia. Follow-up. COMPARISON: 06/02/2019. FINDINGS: Cardiac silhouette is magnified by projection. Pulmonary vasculature remains engorged. Medi astinum is midline. Lines and tubes appear unchanged in position. Dense infiltrates throughout the right lower lobe and patchy infiltrate in the left lower lobe are similar in appearance to the previo us exam. No evidence of pneumothorax. car cleaning supervisor leads overlie the chest. IMPRESSION: Bilateral pneumonia and other findings are stable.
--- NOTE | 2019-06-03 08:21 | PDOC.HOSPP ---
- Subjective Encounter Date: 06/03/19 (f/u pneumonia) Encounter Time: 08:19 Subjective: Pt intubated, sedated, on pressor support and this morning bradycardic into the 30's and hypotensive. - Objective Vital Signs & Weight: Vital Signs (12 hours) Temp Pulse Resp BP Pulse Ox 06/03/19 06:43 126 H 06/03/19 06:00 39 H 06/03/19 04:00 98.7 F 38 H 90 L 06/03/19 03:31 153 H 06/03/19 02:00 38 H 06/03/19 00:00 97.5 F L 40 H 06/02/19 23:48 52 L 97/49 L 06/02/19 22:00 35 H Weight Admit Weight 189 lb Weight 205 lb 7.533 oz Most Recent Monitor Data Heart Rate from ECG 111 NIBP 121/53 NIBP BP-Mean 75 Respiration from ECG 38 SpO2 88 I&O: 06/02/19 06/03/19 06/04/19 06:59 06:59 06:59 Intake Total 5995.5 4100.9 Output Total 1195 669 20 Balance 4800.5 3431.9 -20 Result Diagrams: 06/03/19 02:31 06/03/19 02:31 EKG Reviewed by me: Yes (alessandro 30's) Hospitalist ROS - Review of Systems ROS unobtainable: due to endotracheal tube - Medication Medications: Active Medications Generic Name Dose Route Start Last Admin Trade Name Freq PRN Reason Stop Dose Admin Albumin Human 25 gm 06/02/19 15:28 06/02/19 15:39 Albumin 25% IVPB 06/03/19 17:00 25 gm NOW RADHA Administration Albuterol/Ipratropium 3 ml 05/31/19 10:30 06/03/19 06:42 Duoneb NEB 3 ml [id number] RADHA Administration Famotidine 20 mg 05/31/19 09:00 06/02/19 20:08 Pepcid SLOW IVP 20 mg Q12HR RADHA Administration Levofloxacin 750 mg/ Device 150 mls @ 100 mls/hr 05/31/19 18:00 06/02/19 17: 41 IVPB 150 mls Q24HR RADHA Administration Sodium Chloride 1,000 mls @ 0 mls/hr 05/30/19 22:45 05/31/19 14:01 Normal Saline 0.9% IV 1,000 mls .Q0M RADHA Administration As Directed Piperacillin Sod/Tazobactam 100 mls @ 200 mls/hr 05/30/19 23:59 06/03/19 05: 11 Sod 4.5 gm/ Sodium Chloride IVPB 100 mls Q6HR RADHA Administration Sodium Bicarbonate 140 meq/ 1,140 mls @ 100 mls/hr 06/03/19 00:45 06/03/19 00 :55 Dextrose/Water IV 1,140 mls .[id number] RADHA Administration Lorazepam 2 mg 05/30/19 22:46 06/01/19 15:52 Ativan SLOW IVP 06/29/19 22:46 2 mg Q1H PRN Administration Breakthrough agitation Metoclopramide HCl 10 mg 06/02/19 10:00 06/03/19 05:11 Reglan IVP 10 mg Q6H RADHA Administration Morphine Sulfate 2 mg 05/30/19 22:46 05/31/19 07:29 Morphine SLOW IVP 06/29/19 22:46 2 mg Q1H PRN Administration BREAKTHROUGH PAIN/Agitation Propofol 1,000 mg 05/30/19 20:53 06/02/19 11:35 Diprivan IV 06/29/19 20:53 1,000 mg INF PRN Administration TO ACHIEVE GOAL RASS Protocol Propofol 20 mg 05/30/19 22:46 06/01/19 02:00 Diprivan Bolus IV 06/29/19 22:46 20 mg Q5MIN PRN Administration BREAKTHROUGH AGITATION Sodium Bicarbonate 100 meq 06/03/19 08:00 06/03/19 07:55 Sodium Bicarbonate IVP 06/03/19 10:00 100 meq NOW RADHA Administration Sodium Chloride 10 ml 05/31/19 09:00 06/02/19 20:09 Flush - Normal Saline IVF 10 ml Q12HR RADHA Administration - Exam General Appearance: NAD Heart: no murmur Heart - other findings: alessandro Respiratory: no wheezes Respiratory - other findings: limited air movement bilateral Gastrointestinal - other findings: hypoactive bowel sounds Skin - other findings: multiple areas of petechiae and purpura on arms/legs Musculoskeletal - other findings: unable to assess Psychiatric - other findings: unable to assess Hosp A/P (1) Acute on chronic respiratory failure Code(s): J96.20 - ACUTE AND CHR RESP FAILURE, UNSP W HYPOXIA OR HYPERCAPNIA Status: Acute (2) Thrombocytopenia Code(s): D69.6 - THROMBOCYTOPENIA, UNSPECIFIED Status: Acute (3) Bradycardia Code(s): R00.1 - BRADYCARDIA, UNSPECIFIED Status: Acute (4) Multifocal pneumonia Code(s): J18.9 - PNEUMONIA, UNSPECIFIED ORGANISM Status: Acute (5) Septic shock Code(s): A41.9 - SEPSIS, UNSPECIFIED ORGANISM; R65.21 - SEVERE SEPSIS WITH SEPTIC SHOCK Status: Acute (6) Severe anemia Code(s): D64.9 - ANEMIA, UNSPECIFIED Status: Acute (7) Severe mitral regurgitation Code(s): I34.0 - NONRHEUMATIC MITRAL (VALVE) INSUFFICIENCY Status: Acute (8) Severe tricuspid regurgitation Code(s): I07.1 - RHEUMATIC TRICUSPID INSUFFICIENCY Status: Acute - Plan Pt in multi-organ failure and now bradycardic/hypotensive with anticipated in- hospital . per nursing staff - family contacted this morning no escalation of care - DNAR status no change to current care - per nursing staff, family trying to get here today from out of town. plate roller to be contacted orders reviewed - nothing to add Addendum at 16:18 - time of this morning at 9:00 see dictated summary
--- NOTE | 2019-06-03 08:29 | PRG ---
DATE OF SERVICE: 06/03/2019 TIME SPENT: 35 minutes of critical care time. SUBJECTIVE: The patient has had a terrible night. He has had episodic bradycardia and tachyarrhythmias. His blood pressure has gone down to the point where he is requiring dopamine and Levophed. OBJECTIVE: VITAL SIGNS: Temperature 98.7, pulse is running in the 30s, blood pressure has been systolic in the 120s but is now lower, he is requiring dopamine and Levophed drips. NEUROLOGIC: He does not follow any commands. HEENT: Disheveled. NECK: No JVD. LUNGS: Crackles bilaterally, very tachypneic. CARDIAC: S1 and S2, bradycardic. ABDOMEN: Soft. Surgical wound appears about the same. EXTREMITIES: No edema. LABORATORY DATA: White blood cell count 6.9, hemoglobin 8.7, hematocrit 26.3, and platelet count 9. PH of 7.14, pCO2 of 44, pO2 of 56, and that is on SIMV rate 12, tidal volume 500, PEEP 5, pressure support 10, and FiO2 of 100%. Sodium 143, potassium 4.7, chloride 112, CO2 of 15, BUN 30, creatinine 1.3, glucose 106. AST 549, ALT 423. ASSESSMENT: 1. Septic shock from underlying nosocomial pneumonia. 2. Severe cardiac dysfunction, probably indicative of underlying ischemic heart disease on top of his other medical problems. 3. Colon cancer. PLAN: I think the patient is likely to succumb to his illness today. I spoke with the son, Tien, over the phone. We did agree to make the patient DNR, but continue treatment as we are doing. He is on appropriate antibiotics for his condition. I think there is zero hope for survival. Job ID: [id number]
[2019-06-03] MEDS: Famotidine/PF 20 mg/2ml Vial SLOW IVP SCH (10:49)
--- NOTE | 2019-06-04 07:44 | DIS ---
DATE OF ADMISSION: 05/30/2019 DATE OF DISCHARGE: 06/03/2019 DATE OF : 06/03/2019. TIME OF : 9 a.m. CAUSE OF : 1. Septic shock secondary to pneumonia. 2. Multiorgan failure secondary to above. 3. Acute hypoxic and hypercapnic respiratory failure secondary to above. SECONDARY DIAGNOSES: 1. Severe anemia, status post transfusion. 2. Pancytopenia. 3. Shock liver. 4. Severe mitral regurgitation, tricuspid regurgitation. 5. Colon cancer with recent resection at [facility]. HISTORY OF PRESENT ILLNESS: Mr. Cobb is a 74-year-old male, who presented to the emergency room by EMS due to profound weakness. The patient was hypoxic and hypotensive, found to have bilateral pneumonia and a presentation consistent with septic shock. He was intubated and transferred to the ICU, started on broad-spectrum antibiotics. The patient had recently been hospitalized at [facility] for diagnosis and resection of colon cancer, and evaluation of anemia. HOSPITAL COURSE: The patient's condition had progressively declined during this hospitalization. He had multiorgan failure with pancytopenia and platelets that declined to 9,000 today. He also had shock liver, hypotension requiring pressor support and IV albumin, in addition to treatment for the bilateral pneumonia with broad-spectrum antibiotics. Overnight until today, the patient became bradycardic with a heart rate in the 30s. Dr. Navarrete discussed the condition with the patient's son and the patient was made do not resuscitate. All care that was being provided continued through time of which included pressors, IV fluids, broad-spectrum antibiotics. However, the patient passed at 9 a.m. today. The patient during this hospitalization due to severe anemia and thrombocytopenia, the patient was in total transfused 3 units of packed red blood cells and 2 units of platelets. CONSULTANTS DURING THIS HOSPITALIZATION: 1. Dr. Navarrete of Pulmonology. 2. Dr. Rosen of Cardiology. 3. Palliative Care team. BEARD FINDINGS AND TEST RESULTS: CBC today is 6.9, 8.7, 26.3, 9000. Blood gas today; 7.14, 44, 56.9, 82.9 with a base excess of -13.2. Chemistry; 143, 4.7, 112, 15, 30, 1.32, and 7.6. AST 549 with a peak of 1077, ALT 423 with a peak of 559, alkaline phosphatase 108, total protein 6.1, and albumin 2.7. Urinalysis is present ketones and urobilinogen. Vancomycin trough is 13.5 back on 06/01. Chest x-ray today shows bilateral pneumonia and other findings are stable, which are dense infiltrates throughout the right lower lobe, patchy infiltrate in the left lower lobe. Echocardiogram on May 31 shows EF of 50% to 55%, moderately enlarged right ventricle, severe MR, severe TR, mild [place], mild [place]. Brain CT on May 30, no acute intracranial findings, chronic bilateral maxillary sinusitis. Chest x-ray on 05/30, status post intubation, severe alveolar infiltrates throughout the right lung, left lower lobe infiltrate and small left pleural effusion. CT angiogram of the chest, May 30, severe right upper lobe alveolar infiltrates, multifocal left upper lobe alveolar infiltrates consistent with bilateral pneumonia, small pleural effusions, bilateral lower lobe consolidations, adjacent to pleural effusion, non-opacification of medial and basilar segment of the left lower lobe pulmonary artery of uncertain significance. CT of abdomen and pelvis, wedge-shaped low-attenuation lesions in the bilateral kidneys, uncertain etiology, small focus of subcutaneous emphysema and subcutaneous fat ventral to the upper midline abdominal wall. Correlate with recent surgical history, status post bowel anastomosis involving the ascending colon, fusiform infrarenal abdominal aortic aneurysm. Ultrasound of the left lower extremity negative for DVT. Job ID: [id number] [facility]
--- NOTE | 2019-06-06 05:34 | PQF ---
[employer] Director Of Student Life Crystal Reports Winform CARLOS Stark DOROTA RASMUSSEN [id number] CLINICAL DOCUMENTATION CLARIFICATION FORM: POST DISCHARGE Addendum to original discharge summary date: ____03 JUN 2019 Late entry note date: 06 JUN 2019 DATE: ATTN:DOROTA CAMPBELL Please exercise your independent, professional judgment in responding to the clarification form. Clinical indicators are provided on the bottom of this form for your review Please check appropriate box(s): [ ] Pneumonia is a complication of current/recent surgery [ XX ] Pneumonia is not a complication of current/recent surgery - Likely, cannot definitively determine [ ] Other diagnosis [ ] Unable to determine In addition, please specify: Present on Admission (POA): [ XX ] Yes [ ] No [ ] Unable to determine CLINICAL INDICATORS - SIGNS / SYMPTOMS / LABS Recent abdominal Surgery - Documented in ED note pg#1 underwent subsequent colon resection with the mass being a malignancy - Documented in H&P on 05/30 by Foreign sanchez Nosocomial/hospital acquired pneumonia for previous hospitalization - Documented in PNs on 06/01 by Landon Jimenez septic shock from underlying nosocomial pneumonia - Documented in PNs on 06/03 by Landon Jimenez [employer] Acute res failure requiring mechanical ventilation Toxic encephalopathy NSTEMI TREATMENT: Levofloxacin 750 mg - Medication report Vancomycin -Medication report (This form is maintained as a part of the permanent medical record) 2014 [employer]. All Rights Reserved [email or web address] [not provided] MTDD
--- NOTE | 2019-06-06 21:10 | EKG ---
Test Reason : STAT Blood Pressure : / mmHG Vent. Rate : 140 BPM Atrial Rate : 197 BPM P-R Int : 000 ms QRS Dur : 102 ms QT Int : 244 ms P-R-T Axes : 000 047 152 degrees QTc Int : 372 ms Atrial fibrillation with rapid ventricular response Abnormal ECG When compared with ECG of 30-MAY-2019 17:23, (Unconfirmed) Atrial fibrillation has replaced Sinus rhythm Vent. rate has increased BY [address] more depressed in Anterior leads Confirmed by Elli HIDALGO ([id number]) on 06/06/2019 9:10:19 PM Referred By: PATRICIA Confirmed By:Elli HIDALGO
== END 2019-06-03 09:00 | disposition expired | DRG 871 ==
LOC: ERS 17:13 → CCU 22:54
PROVIDERS: ADMIT Family Medicine; ATTEND Family Medicine
PROC: 0BH17EZ Insertion of Endotracheal Airway into Trachea, Via Natural or Artificial Opening (ICD-10-PCS; principal; 2019-05-30)
PROC: 5A1945Z Respiratory Ventilation, 24-96 Consecutive Hours (ICD-10-PCS; 2019-05-30)
DX: A41.9 Sepsis, unspecified organism (principal); R65.21 Severe sepsis with septic shock; J18.9 Pneumonia, unspecified organism; G92 Toxic encephalopathy; K72.00 Acute and subacute hepatic failure without coma; J96.21 Acute and chronic respiratory failure with hypoxia; J96.22 Acute and chronic respiratory failure with hypercapnia; I21.A1 Myocardial infarction type 2; N28.0 Ischemia and infarction of kidney; D61.818 Other pancytopenia; Z51.5 Encounter for palliative care; Z66 Do not resuscitate; Z99.81 Dependence on supplemental oxygen; Z85.118 Personal history of other malignant neoplasm of bronchus and lung; Z90.49 Acquired absence of other specified parts of digestive tract; Z88.7 Allergy status to serum and vaccine; I48.0 Paroxysmal atrial fibrillation; D69.6 Thrombocytopenia, unspecified; R16.2 Hepatomegaly with splenomegaly, not elsewhere classified; I07.1 Rheumatic tricuspid insufficiency; I34.0 Nonrheumatic mitral (valve) insufficiency; J44.9 Chronic obstructive pulmonary disease, unspecified; I27.20 Pulmonary hypertension, unspecified; Y95 Nosocomial condition; R00.1 Bradycardia, unspecified
CPT/HCPCS: 31500; 36415; 36430; 51702; 70450; 71045; 71275; 74177; 80053; 80202; 81003; 82553; 82805; 83605; 83735; 84100; 84484; 85007; 85025; 85027; 86850; 86900; 86901; 87040; 87086; 93005; 93010; 93306; 94003; 94640; 94660; 96365; 96366; 96367; 96375; 99292; J0171; J0461; J1265; J1956; J2060; J2270; J2543; J2704; J2765; J3010; J3370; J3490; J7050; J7070; J7620; P9016; P9035; P9047; Q9967; S0028